=== PATIENT | female | born 1965 | race Caucasian/White ===

== ENCOUNTER 2017-05-22 00:35 | Emergency (ER) | payer SELFPAY ==
[~2017-05-22] VITALS: Ht 167.6 cm; Wt 71.2 kg
[2017-05-22 00:41] VITALS: TEMP 36.6; Ht 167.6 cm; Wt 71.2 kg
--- NOTE | 2017-05-22 00:53 | EMERGENCY ROOM VISIT NOTE ---
History Report prepared by Scribe: Vic Joseph Under the Supervision of: Dr. Deborah Londono D.O. First contact with patient: 00:38 Chief Complaint: NASAL PAIN/INJURY Stated Complaint: ALCOHOL OVERDOSE/FALL History of Present Illness The patient is a 51 year old female who presents to the Emergency Room with complaints of a nasal injury that happened recently after falling in a bathtub in a hotel room. The patient was at a [employer] and her designated milk tanker driver drove her back to her hotel where she ended up falling in the bathtub. She states that she hit her face on the side of the bathtub and cut her nose. She admits to drinking alcohol tonight. Per patient, patient denies any pain in neck , back, chest, or any body aches. Patient describes the scene as "blood everywhere, like someone was murdered". Individuals that were present advised her to go to the ER. Patient admits to "drinking more than she should have". Patient adds that her last tetanus shot was around 20 years ago. Source of History: patient Onset: Prior to arrival Position: nose Timing: other (episode) Associated Symptoms: No neck pain, No chest pain, No back pain Review of Systems See HPI for pertinent positives & negatives. A total of 10 systems reviewed and were otherwise negative. Past Medical & Surgical Medical Problems: (1) No Known Active Medical Problems Family History No pertinent family history stated. Social History Smoking Status: Current Every Day Smoker Occupation Status: employed Current/Historical Medications No Active Prescriptions or Reported Meds Allergies Coded Allergies: No Known Allergies (Unverified , 05/22/17) Physical Exam Vital Signs Date Time Temp Pulse Resp B/P (MAP) Pulse Ox O2 Delivery O2 Flow Rate FiO2 05/22/17 02:51 83 18 131/82 98 05/22/17 00:41 36.6 89 18 127/83 95 Room Air Physical Exam GENERAL: smells of EtOH, alert, well appearing, well nourished, no distress, non -toxic HEAD: NC/AT EYE EXAM: normal conjunctiva, PERRL and EOM's grossly intact OROPHARYNX: no exudate, no erythema, lips, buccal mucosa, and tongue normal and mucous membranes are moist, poor dentition, no acute trauma NOSE: swelling at nasal bridge, small superficial laceration, dry blood bilateral nares, no active epistaxis, no septal hematoma NECK: supple, no nuchal rigidity, no adenopathy, non-tender, no step off LUNGS: Clear to auscultation. Normal chest wall mechanics, no w/r/r HEART: no murmurs, S1 normal and S2 normal ABDOMEN: abdomen soft, non-tender, normo-active bowel sounds, no masses, no rebound or guarding. Pelvis stable. BACK: Back is symmetrical on inspection and there is no deformity, no midline tenderness, no CVA tenderness. SKIN: no rashes and no bruising UPPER EXTREMITIES: upper extremities are grossly normal. FROM, nml pulses, no deformity or trauma. LOWER EXTREMITIES: No pitting edema. FROM, nml pulses. No deformity or trauma. NEURO EXAM: Normal sensorium, cranial nerves II-XII grossly intact, normal speech, no gross weakness of arms, no gross weakness of legs. Medical Decision & Procedures ER Provider Diagnostic Interpretation: Radiology results have been interpreted by the radiologist and reviewed by me. CT HEAD: No acute intracranial abnormality. No acute calvarial abnormality. CT FACIAL: Age indeterminate fracture of the medial wall of the left orbit. No evidence of entrapment. Globes are unremarkable. Multiple periapical lucencies suggesting periodontal disease. CT C SPINE: Degenerative changes without evidence of acute fracture or traumatic malalignment. Centrilobular emphysema. Biapical pleural-parenchymal scarring. Radiologist: Timothy Spann MD Laboratory Results Test 05/22/17 00:49 Ethyl Alcohol mg/dL 303.0 mg/dl (0-3) Laboratory results per my review. Medications Administered Medications (Trade) Dose Ordered Sig/Shad Route Start Time Stop Time Status Last Admin Dose Admin Diphtheria/ Pertussis/Tetanus Vacc (Adacel Inj) 0.5 ml ONCE ONCE IM. 05/22/17 02:45 05/22/17 02:46 DC 05/22/17 02:42 0.5 ML ED Course 0044: The patient was evaluated in room B9. A complete history and physical exam was performed. 0235: Upon reevaluation, the patient is feeling better. I discussed the findings and the treatment plan with the patient. She verbalizes agreement and understanding. She was discharged home. Daughter at bedside to drive her. 0245: Ordered Adacel Inj 0.5 mL IM. Medical Decision Differential diagnosis: Etiologies such as fracture, dislocation, intra-abdominal, pneumothorax, intrathoracic , intracranial, neurologic, as well as other traumatic pathologies were entertained. I have a low suspicion for any additional traumatic injury. Pt well appearing here. Laceration to nasal bridge superficial and does not require repair. Pt ambulated with steady gait, no vomiting, no other complaints on repeat exam. Discussed with pt follow-up, concussion precautions, sx to watch/return for, she verbalized understanding and was agreeable with plan. Medication Reconcilliation Current Medication List: was personally reviewed by me Blood Pressure Screening Patient's blood pressure: Normal blood pressure Blood pressure disposition: Did not require urgent referral Impression Primary Impression: Alcohol intoxication Additional Impressions: CHI (closed head injury) Facial laceration Facial contusion Fall Scribe Attestation The scribe's documentation has been prepared under my direction and personally reviewed by me in its entirety. I confirm that the note above accurately reflects all work, treatment, procedures, and medical decision making performed by me. Departure Information Dispostion Home / Self-Care Prescriptions No Active Prescriptions or Reported Meds Referrals No Doctor, Assigned (PCP) Forms HOME CARE DOCUMENTATION FORM, IMPORTANT VISIT INFORMATION, WORK / SCHOOL INSTRUCTIONS Patient Instructions Alcohol Intoxication - [facility], ED Contusion Nasal, ED Head Injury Closed, My [facility] Additional Instructions Please drink plenty of water to stay well-hydrated. Please drink responsibly safe location. Do not drink and drive. If you develop persistent or worsening headaches, vision changes, dizziness, nausea or vomiting, and this or tingling, neck or back pain, are unable to walk, develop chest pain or trouble breathing, you have any other new or concerning symptoms, please return the emergency room. Problem Qualifiers Primary Impression: Alcohol intoxication Complication of substance-induced condition: uncomplicated Qualified Codes: F10.920 - Alcohol use, unspecified with intoxication, uncomplicated Additional Impressions: CHI (closed head injury) Encounter type: initial encounter Qualified Codes: S09.90XA - Unspecified injury of head, initial encounter Facial laceration Encounter type: initial encounter Qualified Codes: S01.81XA - Laceration without foreign body of other part of head, initial encounter Facial contusion Encounter type: initial encounter Qualified Codes: S00.83XA - Contusion of other part of head, initial encounter Fall Encounter type: initial encounter Qualified Codes: W19.XXXA - Unspecified fall, initial encounter
[2017-05-22] MEDS ORDERED: DIPHTHERIA/TETANUS/PERTUSSIS 0.5 ML SYR/VIAL IM. ONE (02:45)
[2017-05-22 02:51] VITALS: BP 131/82; PULSE 83; O2SAT 98
--- NOTE | 2017-05-22 06:42 | DIAGNOSTIC IMAGING REPORT ---
HEAD CT NONCONTRAST CT DOSE: HISTORY: trauma, etoh TECHNIQUE: Multiaxial CT images of the head were performed without the use of intravenous contrast. Automated exposure control was utilized for this study. A dose lowering technique was utilized adhering to the principles of ALARA. Comparison: None. Findings: The paranasal sinuses and mastoid air cells are clear. The calvarium and skull base are intact. The ventricles and sulci are within normal limits. There is no mass, hematoma, midline shift, or acute infarct. Impression: No acute intracranial abnormality. Electronically signed by: Amadeo Mccullough M.D. 05/22/2017 6:41 AM Dictated Date/Time: 05/22/2017 6:39 AM
--- NOTE | 2017-05-22 06:45 | DIAGNOSTIC IMAGING REPORT ---
CERVICAL SPINE CT CT DOSE: 1486.94 mGy.cm HISTORY: trauma, etoh TECHNIQUE: Multiaxial CT images of the cervical spine were performed and reformatted in the sagittal and coronal plane without the use of contrast. A dose lowering technique was utilized adhering to the principles of ALARA. COMPARISON: None. FINDINGS: No fractures. No subluxation. Prevertebral soft tissues and the C1-C2 interval are intact. No pneumothorax. Moderate to space narrowing and endplate osteophytes C6-C7 and mild disc space narrowing at C5-C6. Emphysema. IMPRESSION: No fractures within the cervical spine. Electronically signed by: Amadeo Mccullough M.D. 05/22/2017 6:44 AM Dictated Date/Time: 05/22/2017 6:41 AM
--- NOTE | 2017-05-22 07:09 | DIAGNOSTIC IMAGING REPORT ---
MAXILLOFACIAL CT CT DOSE: HISTORY: Facial injury. trauma, etoh TECHNIQUE: Multiaxial CT images of the maxillofacial region were performed and reformatted in the coronal plane without the use of contrast. A dose lowering technique was utilized adhering to the principles of ALARA. COMPARISON: None. FINDINGS: Nondisplaced nasal bone fractures. Nasal soft tissue swelling. Medial depression of the medial wall the left orbit. This likely represents an old fracture. There is no adjacent soft tissue swelling to suggest an acute injury. The globes and retrobulbar fat are intact. The mandible, pterygoid plates, skull base, zygomatic arches, and orbital floors are intact. Periapical lucencies consistent with periodontal disease. Retention cyst within the left maxillary sinus. IMPRESSION: Nasal soft tissue swelling with acute nondisplaced nasal bone fractures. Electronically signed by: Amadeo Mccullough M.D. 05/22/2017 7:08 AM Dictated Date/Time: 05/22/2017 7:02 AM
--- NOTE | 2017-05-22 07:26 | EMERGENCY ROOM VISIT NOTE ---
ED Visit Note First contact with patient: 00:[address] read: acute nondisplaced nasal bone fractures on CT face. Charge nurse to call and update patient. Advise no nose blowing and follow-up with ENT.
== END 2017-05-22 02:52 | disposition home or self-care (01) ==
LOC: C.EDB 00:37
DX: F10.920 Alcohol use, unspecified with intoxication, uncomplicated (principal); S09.90XA Unspecified injury of head, initial encounter; S01.81XA Laceration without foreign body of other part of head, initial encounter; W18.2XXA Fall in (into) shower or empty bathtub, initial encounter; W22.8XXA Striking against or struck by other objects, initial encounter; F17.200 Nicotine dependence, unspecified, uncomplicated; Z23 Encounter for immunization

== ENCOUNTER 2025-04-19 14:21 | Inpatient (IN) ==
--- NOTE | 2025-04-19 14:37 | ED Triage Note ---
Date of Service April 19, 2025 Provider in Triage Author: Preston Arellano History of Present Illness This patient was briefly evaluated while in triage. An abbreviated physical exam was performed. This patient is a 59-year-old Female who presents to the ED for evaluation of sharp pain in the "stomach up into my chest and down into my arms and my shoulder blades." Pt. states symptoms started Wednesday. Pain all over in the chest, mainly down into the right arm. Pt. concerned she is having a heart attack. Symptoms improved at this time. Physical Exam VITALS: Vitals are noted on the nurse's note and reviewed by myself. GENERAL: This is a 59 year old female, in no acute distress, nondiaphoretic, well-developed well-nourished. SKIN: No obvious rashes, edema, erythema HEAD: Normocephalic atraumatic. EYES: Conjunctivae without injection, sclerae without icterus. NECK: No JVD. LUNGS: No retractions or accessory muscle use. MUSCULOSKELETAL: Normal gait. NEURO: Patient was alert and oriented to person place and time. No focal neurological deficits. Initial orders for labs and / or imaging were placed and patient was placed in the waiting area until a bed is available. Please see further documentation for the full ED course.
[2025-04-19 15:58] LABS: Hematocrit (blood only) 43.1 % (37.0-47.0); Hemoglobin 14.6 g/dL (12.0-16.0); Immature Granulocytes # (auto) 0.02 K/uL (0.01-0.20); Immature Granulocytes % (auto) 0.3 %; Mean Corpuscular Hemoglobin 32.5 pg (25.0-34.0); Mean Corpuscular Volume 96.0 fL (80.0-100.0); Platelet Count 191 K/uL (130-400); RDW Standard Deviation 45.6 fL (36.4-46.3); Red Blood Count 4.49 M/uL (4.20-5.40); White Blood Count 7.89 K/ul (4.8-10.8)
[2025-04-19] MEDS: SODIUM CHLORIDE 0.9% 1,000 ML IV STA (16:12)
[2025-04-19 16:15] LABS: Alanine Aminotransferase 18.0 U/L (7-52); Albumin Globulin Ratio 1.1 (0.9-2); Albumin Level 4.2 gm/dl (3.4-5.0); Alkaline Phosphatase 107.0 U/L (34-104); Anion Gap 8.0 (3-11); Bilirubin,Total 0.5 mg/dl (0.2-1.0); Blood Urea Nitrogen 7.0 mg/dl (6-23); Calcium 9.9 mg/dl (8.6-10.3); Carbon Dioxide 26.0 mmol/L (21-32); Chloride 104.0 mmol/L (98-107); Creatinine Clr Calc Pharmacy 88.9 ml/min; Globulin 3.9 gm/dl (2.5-4.0); Glucose 101.0 mg/dl (70-99(Fasting)); Lipase 15.0 U/L (11-82); Potassium 3.9 mmol/L (3.5-5.1); Sodium 138.0 mmol/L (136-145); Total Protein 8.1 gm/dl (6.0-8.3)
[2025-04-19 16:26] LABS: INR 1.0 (0.9-1.1); Partial Thromboplastin Time 31 Seconds (21-31); Prothrombin Time 10.6 Seconds (9.0-12.0)
[2025-04-19] MEDS: ASPIRIN 81 MG CHEW PO STA (16:37)
[2025-04-19] MEDS: NITROGLYCERIN SL 0.4 MG/TAB TAB SL PRN (16:38)
[2025-04-19] MEDS: OPTIRAY 320 125ml IV ONE (16:49)
--- NOTE | 2025-04-19 17:52 | CT Scan Report ---
INDICATION: Chest pain COMPARISON: None TECHNIQUE: Images obtained with and without IV contrast CT images of the chest were obtained. 3D CT angiogram was generated from the axial data set. Dose reduction according to patient size and/or automated exposure control techniques have been utilized for this exam. MIP (Maximum Intensity Pixel) images were utilized. FINDINGS: LUNGS: No focal consolidations. No worrisome pulmonary nodules. Emphysematous type changes with numerous bulla predominantly at the lung apices. PLEURA: There is no pleural effusion. MEDIASTINUM/ALAN: No significant lymphadenopathy. CARDIAC: The heart is normal in size. Moderate coronary artery calcifications. AORTA: No evidence of aortic aneurysm or dissection.Mild atherosclerotic changes LIMITED ABDOMEN: Normal size adrenal glands. Upper pole left renal cyst. BONES: Bony thorax is intact. Degenerative changes of the thoracic spine. OTHER: No evidence of pulmonary embolism. Heterogeneous thyroid gland with small nodule formation. IMPRESSION: No evidence of aortic aneurysm or dissection. No evidence of pulmonary embolism. Electronically signed by Shnanon Negron 04-19-2025 5:51 PM
--- NOTE | 2025-04-19 17:52 | XRay Report ---
COMPARISON: None FINDINGS: HEART: Normal in size. LUNGS: No focal consolidation, pleural effusion, or vascular congestion. MEEDIASTINUM: Unremarkable. BONES: Intact. OTHER: Unremarkable. IMPRESSION: No acute disease. Electronically signed by Shannon Negron 04-19-2025 5:51 PM
--- NOTE | 2025-04-19 18:20 | CT Scan Report ---
Clinical history: Evaluate for dissection Technique: Axial computed tomography images were obtained of the abdomen and pelvis after the administration of intravenous contrast according to the CT angiogram protocol Findings: The abdominal aorta appears unremarkable with no sign of aneurysm or dissection. No stenosis is seen involving it. The celiac axis and superior mesenteric artery are patent with no stenosis identified. The inferior mesenteric artery is patent as well. There are 2 right renal arteries. Both demonstrate moderate severity stenoses in their proximal aspects. There are 2 left renal arteries. There is a mild stenosis in the proximal aspect of the main left renal artery. There is mild plaque in the common iliac arteries bilaterally, without stenosis. There are mild stenoses of the proximal internal iliac arteries bilaterally. No stenosis is seen of the external iliac arteries. There are mild stenoses of the right common femoral artery in the proximal right superficial femoral artery. The liver is overall of normal size, attenuation, and contour with no sign of cirrhosis or significant fatty infiltration. There is an apparent 8 mm enhancing lesion in the posterior septum of the right hepatic lobe. The portal vein is patent. The gallbladder appears unremarkable. No bile duct dilatation is noted. The spleen is of normal size. No focal splenic lesion is evident. The pancreas appears normal with no sign of acute or chronic pancreatitis and no mass lesion noted. The pancreatic duct is of normal caliber. . There is a 1.7 cm left adrenal nodule, indeterminate in nature. The right adrenal gland appears normal No definite renal or proximal ureteral calculi are seen on this contrast-enhanced study. There is no hydronephrosis or perinephric stranding. No renal mass lesion is identified. There are several left renal cysts, measuring up to 2 cm No adenopathy is seen. The stomach appears normal. There is no sign of small bowel obstruction. The colon appears unremarkable. There is no sign of appendicitis. No free intraperitoneal fluid or air is identified. No distal ureteral or bladder calculi are seen. No bladder mass lesion is evident. The lungs bases appear clear. No fracture is identified. No focal osseous lesion is seen Impression: 1. No sign of abdominal aortic aneurysm or dissection 2. Bilateral renal artery stenosis 3. No sign of mesenteric artery stenosis 4. Mild stenoses of the right [employer], proximal right SFA, and bilateral internal iliac arteries 5. Indeterminate left adrenal enlargement. A follow-up dedicated adrenal protocol CT or MRI could be obtained 6. Left renal cysts 7. Apparent small mass in the right hepatic lobe. This could represent a benign hemangioma but is indeterminate in nature. This could also be further evaluated by the above recommended follow-up CT or MRI ACT 112: Positive. There are findings on this exam that require communication between the performing entity and the patient following Patient Test Result Information Act ([place] ACT 112) guidelines. Electronically signed by Oseas Sanchez 04-19-2025 6:19 PM
[2025-04-19] MEDS: HEPARIN SOD (PORCINE) 1000 UNIT/ML IV ONE (19:06)
[2025-04-19] MEDS: HEPARIN 25000 UNIT/500 ML D5W 25,000 UNITS/500 ML BAG IV SCH (19:06)
[2025-04-19] MEDS: Heparin IV Adult Wt-Based Low-Dose w/ INITIAL Bolus Protocol IV STA (19:07)
--- NOTE | 2025-04-19 19:21 | History & Physical Report ---
Date of Service April 19, 2025 Assessment & Plan (1) NSTEMI (non-ST elevated myocardial infarction): (2) Elevated LFTs: Plan 59-year-old female no significant PMHx presenting for right-sided chest pain starting 5 to 6 days [employer], worsening day of arrival. Evaluation is nonsignifica nt for clear infection or gross electrolyte abnormalities. Liver enzymes slightly elevated AST 47 alkaline phosphatase 107. Troponin elevated 2195.7 then on repeat 2605.5 with EKG changes. Imaging without acute findings, but CTA of abdomen and pelvis does reveal bilateral renal artery stenosis as well as L adrenal enlargement, L renal cyst, and R hepatic lobe mass. Admission for NSTEMI. #NSTEMI Chest pain started approximately 6 days [employer], worsening day of arrival with radiation into shoulders and arms. No prior history of cardiac conditions, does have long history of cigarette use, ~ 45 years at ~ 1ppd but trying to decrease. No home medications. Pt without anginal symptoms at baseline. Initially difficult to obtain pain control despite IV beta blockers, oral beta blockers, NTG, topical NTG, and morphine IV. Finally with improvement, so pt to continue to PCU. Critical care time includes 42 minutes duration. Admission for NSTEMI. 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 No prior history liver disease. Does drink alcohol occasionally throughout the week. - AST 47, ALT 18, alk phos 107 - trend LFTs - CTA A/P small mass R hepatic lobe - ? benign hemangioma - Recommended follow up CT or MRI -- not ordered at time of admission Dispo: Admit, PCU VTE Prophylaxis: Heparin - treatment dose This document was dictated utilizing [employer]. Please excuse any grammatical errors that may be secondary to use of this software. Admission and Anticipated Discharge Date Admission Date: 04/19/2025 History of Present Illness Chief Complaint: Abdominal/chest pain Primary Care Provider: Cesar Araiza PA-C 59-year-old female no significant PMHx presenting for right-sided chest pain starting 6 days [employer], worsening day of arrival. Pt states 6 days [employer] she developed a "weird pain" in her central chest, describing it as a "crooked burp- like a burp that gets stuck in your chest." Reports that she was at rest when this started. The pain lasted for ~ 30 minutes, then resolved without intervention. Later that same day, she went to bed and noticed that the pain started once more in the same nature, this time with radiation to her shoulder blades and with tingling in her bilateral arms. She took Mylanta at that time and felt that this resolved her pain, so she was able to sleep. Did not have additional symptoms at that time. 2 days [employer] she had another episode of the same pain that lasted ~ 2 hours and was associated with nausea, no vomiting. It again resolved on its own. Pt then had onset of R sided chest discomfort the morning of arrival, at 0130, lasting until ~ 0330. Notes that it was a dull pain that, at its worst, was "close to a 10/10" on the pain scale, and associated with lightheadedness when she was walking or moving around. It was in the same distribution as previously described. She has been more aware of her heartbeat, but no palpitations or SOB. She does have a chronic cough as she has smoked cigarettes for ~ 45 years, 1ppd, but currently trying to quit. At present, she feels that she still has some discomfort in her chest, rating it a 5/10 on the main scale and localized under her R breast. No abdominal pain, N/V/D/C. She has no prior history of gallbladder issues. No prior PMHx aside from seasonal allergies, does not take medications daily. Never had this happen before. No syncope or falls. ED evaluation with CBC without leukocytosis or leukopenia, H&H stable; PT/INR WNL; CMP glucose 101, AST 47, alkaline phosphatase 107; troponin 2195.7, 2605.5 on repeat; lipase 15; CXR no acute disease; CTA A/P no abdominal aortic aneurysm or dissection, bilateral renal artery stenosis, no sign of mesenteric artery stenosis, mild stenosis of R RAIL [employer] PAINTER/SANDBLASTER/proximal R SFA/bilateral internal iliac arteries, left adrenal enlargement determinate, L renal cyst, small mass R hepatic lobe (indeterminate); chest CTA no aneurysm or dissection, no PE; EKG NSR, possible LAE at 94 bpm.; Provided with 1L NSS, nitr oglycerin 0.4 mg sublingually, heparin drip initiated, and aspirin 324 mg p.o. in ED. Please see Dr. Omalley's attestation for adjustments/additions to treatment plan. Allergies Allergy/AdvReac Type Severity Reaction Status Date / Time No Known Allergies Allergy Unverified 04/19/25 17:07 Home Medications Medication Instructions Recorded Confirmed Type No Known Home Medications 04/19/25 04/19/25 History aspirin 81 mg tablet,delayed 81 mg PO QAM #30 tabs 04/21/25 Rx release atorvastatin 40 mg tablet 40 mg PO QPM #30 tabs 04/21/25 Rx metoprolol tartrate 25 mg tablet 25 mg PO BID #60 tabs 04/21/25 Rx ticagrelor 90 mg tablet (Brilinta) 90 mg PO BID #60 tabs 04/21/25 Rx Past Med/Surg History Problem List (Updated 04/21/25 @ 09:25 by Medhat Heath MD, PhD) Atherogenic dyslipidemia Coronary artery disease Elevated LFTs NSTEMI (non-ST elevated myocardial infarction) (Acute) No known health problems Social History Smoking Status: Current every day smoker Tobacco Type: Cigarettes Cigarettes Per Day: 1 pk; Second Hand Exposure: Yes; Do You Dip or Chew Tobacco: No; Hx Alcohol Use: No Hx Substance Use: No Preferred Language: Argentine Communication Ability: Effective 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 Beliefs That Will Affect Care: None Current Living Situation: Significant Other Feels Safe at Home: Yes Assistive Devices: None Review of Systems Review of Systems: All systems reviewed & are unremarkable except as noted in Subjective Physical Exam Physical Exam: General: No acute distress Skin: Warm and dry Head: Normocephalic, atraumatic Eyes: PERRL, conjunctivae clear, sclera non-icteric ENT: External ear and ear canal without swelling; nose atraumatic; fair dentition, tongue normal appearance, pharynx normal Neck: Supple, no LAD Cardio: slightly tachycardic, regular rhythm, no M/G/R, S1 and S2 normal Resp: No respiratory distress, Lungs CTA in all lobes bilaterally, no wheezes, rales, or rhonchi Abdomen: Soft, symmetric, nontender; No masses or hepatosplenomegaly; Bowel sounds normoactive MSK: No deformities; pulses palpable and equal; trace pitting edema BLE to mid- calf. Neuro: Awake, alert; Sensation intact bilaterally; CN grossly intact Psych: Appropriate mood and affect; good judgement and insight. Results & Data Results & Data Vital Signs (Past 12 Hours) Vital Signs Temp Pulse Pulse Resp BP BP Pulse Ox 04/19/25 18:00 85 19 156/91 H 97 04/19/25 17:00 91 H 21 146/84 H 95 04/19/25 16:43 91 H 16 100 04/19/25 16:30 92 H 22 04/19/25 16:23 91 H 04/19/25 16:18 93 H 16 146/91 H 100 04/19/25 14:35 37.0 C 101 H 17 140/80 98 O2 Del Method 04/19/25 18:00 04/19/25 17:00 04/19/25 16:43 Room Air 04/19/25 16:30 04/19/25 16:23 04/19/25 16:18 Room Air 04/19/25 14:35 Room Air Laboratory Results 04/19/25 04/19/25 Unknown 17:28 WBC 7.89 RBC 4.49 Hgb 14.6 Hct 43.1 MCV 96.0 MCH 32.5 MCHC 33.9 RDW Std Deviation 45.6 RDW Coeff of Jose Eduardo 12.9 Plt Count 191 MPV 11.0 Immature Gran % (Auto) 0.3 Neut % (Auto) 63.5 Lymph % (Auto) 27.2 Ceiba % (Auto) 7.2 Eos % (Auto) 1.0 Baso % (Auto) 0.8 Neut # (Auto) 5.01 Lymph # (Auto) 2.15 Ceiba # (Auto) 0.57 Eos # (Auto) 0.08 Baso # (Auto) 0.06 Immature Gran # (Auto) 0.02 PT 10.6 INR 1.0 APTT 31 PTT Ratio 1.1 Sodium 138 Potassium 3.9 Chloride 104 Carbon Dioxide 26 Anion Gap 8 BUN 7 Creatinine 0.63 Est Cr Clr Drug Dosing 88.9 eGFR 101.49 BUN/Creatinine Ratio 11.1 Glucose 101 H Calcium 9.9 Total Bilirubin 0.5 AST 47 H ALT 18 Alkaline Phosphatase 107 H Troponin I High Sens 2605.5 H* 2195.7 H* Total Protein 8.1 Albumin 4.2 Globulin 3.9 Albumin/Globulin Ratio 1.1 Lipase 15 Diagnostic Findings Chest X-Ray 04/19/25 14:38 COMPARISON: None FINDINGS: HEART: Normal in size. LUNGS: No focal consolidation, pleural effusion, or vascular congestion. MEEDIASTINUM: Unremarkable. BONES: Intact. OTHER: Unremarkable. IMPRESSION: No acute disease. Electronically signed by Shannon Negron 04-19-2025 5:51 PM Abdomen/Pelvis CTA 04/19/25 16:35 Clinical history: Evaluate for dissection Technique: Axial computed tomography images were obtained of the abdomen and pelvis after the administration of intravenous contrast according to the CT angiogram protocol Findings: The abdominal aorta appears unremarkable with no sign of aneurysm or dissection. No stenosis is seen involving it. The celiac axis and superior mesenteric artery are patent with no stenosis identified. The inferior mesenteric artery is patent as well. There are 2 right renal arteries. Both demonstrate moderate severity stenoses in their proximal aspects. There are 2 left renal arteries. There is a mild stenosis in the proximal aspect of the main left renal artery. There is mild plaque in the common iliac arteries bilaterally, without stenosis. There are mild stenoses of the proximal internal iliac arteries bilaterally. No stenosis is seen of the external iliac arteries. There are mild stenoses of the right common femoral artery in the proximal right superficial femoral artery. The liver is overall of normal size, attenuation, and contour with no sign of cirrhosis or significant fatty infiltration. There is an apparent 8 mm enhancing lesion in the posterior septum of the right hepatic lobe. The portal vein is patent. The gallbladder appears unremarkable. No bile duct dilatation is noted. The spleen is of normal size. No focal splenic lesion is evident. The pancreas appears normal with no sign of acute or chronic pancreatitis and no mass lesion noted. The pancreatic duct is of normal caliber. . There is a 1.7 cm left adrenal nodule, indeterminate in nature. The right adrenal gland appears normal No definite renal or proximal ureteral calculi are seen on this contrast-enhanced study. There is no hydronephrosis or perinephric stranding. No renal mass lesion is identified. There are several left renal cysts, measuring up to 2 cm No adenopathy is seen. The stomach appears normal. There is no sign of small bowel obstruction. The colon appears unremarkable. There is no sign of appendicitis. No free intraperitoneal fluid or air is identified. No distal ureteral or bladder calculi are seen. No bladder mass lesion is evident. The lungs bases appear clear. No fracture is identified. No focal osseous lesion is seen Impression: 1. No sign of abdominal aortic aneurysm or dissection 2. Bilateral renal artery stenosis 3. No sign of mesenteric artery stenosis 4. Mild stenoses of the right RAIL CAR PAINTER/SANDBLASTER, proximal right SFA, and bilateral internal iliac arteries 5. Indeterminate left adrenal enlargement. A follow-up dedicated adrenal protocol CT or MRI could be obtained 6. Left renal cysts 7. Apparent small mass in the right hepatic lobe. This could represent a benign hemangioma but is indeterminate in nature. This could also be further evaluated by the above recommended follow-up CT or MRI ACT 112: Positive. There are findings on this exam that require communication between the performing entity and the patient following Patient Test Result Information Act ([place] ACT 112) guidelines. Electronically signed by Oseas Sanchez 04-19-2025 6:19 PM Chest CTA 04/19/25 16:35 INDICATION: Chest pain COMPARISON: None TECHNIQUE: Images obtained with and without IV contrast CT images of the chest were obtained. 3D CT angiogram was generated from the axial data set. Dose reduction according to patient size and/or automated exposure control techniques have been utilized for this exam. MIP (Maximum Intensity Pixel) images were utilized. FINDINGS: LUNGS: No focal consolidations. No worrisome pulmonary nodules. Emphysematous type changes with numerous bulla predominantly at the lung apices. PLEURA: There is no pleural effusion. MEDIASTINUM/ALAN: No significant lymphadenopathy. CARDIAC: The heart is normal in size. Moderate coronary artery calcifications. AORTA: No evidence of aortic aneurysm or dissection.Mild atherosclerotic changes LIMITED ABDOMEN: Normal size adrenal glands. Upper pole left renal cyst. BONES: Bony thorax is intact. Degenerative changes of the thoracic spine. OTHER: No evidence of pulmonary embolism. Heterogeneous thyroid gland with small nodule formation. IMPRESSION: No evidence of aortic aneurysm or dissection. No evidence of pulmonary embolism. Electronically signed by Shannon Negron 04-19-2025 5:51 PM Medications Administered 1L NSS Nitroglycerin 0.4 mg sublingually Heparin drip Aspirin 324 mg p.o. ECG Additional Comments: NSR, possible LAE, nonspecific ST abnormality (V3, V4) 94 bpm, MN 136, QRS 84, QT/QTc 354/442, PRT 35/62/51 Code Status & VTE Plan Code Status Full Critical Care Time Critical Care Time: Yes Total Critical Care Time: 42 Supervising Physician Co-Signing Physician Notes Attending addendum: I have physically seen this patient, have supervised the DAVID's activities, and agree with the H&P unless as otherwise noted. Assessment and Plan: The patient is a 59-year-old female with no significant past medical history who presents to the emergency department with right-sided chest pain that began about 5 to 6 days prior to arrival, worsening on day of arrival. Initial troponin in the emergency department was 2195.7, with follow-up 2605.[address] angiography of abdomen and pelvis showed bilateral renal artery stenosis, left adrenal enlargement, left renal cyst, and right [place] lobe mass. NSTEMI- Initial troponin 2195.7, with follow-up 2605.5. The patient will be admitted to telemetry for serial cardiac enzymes, serial EKG's, cardiac rhythm monitoring and a 2-D echocardiogram with Dopplers. EKG with normal sinus rhythm and ST changes leads is noted. CT angiography of chest is negative for PE, aneurysm or dissection. CT angiography abdomen and pelvis showed bilateral renal artery stenosis, mild stenosis of the lower RAIL [employer]/SANDB[employer]ER and proximal right SFA Order fasting lipid panel Begin empiric atorvastatin 40 mg daily with first dose now Nitroglycerin sublingual and morphine IV as noted Metoprolol to tartrate 25 mg p.o. twice daily begun in the ED Continue aspirin 81 mg daily Tobacco cessation counseling Heparin drip per protocol Consult cardiology Elevated LFTs/hepatic mass- AST 47, ALT 18, alk phos 107 CT angiography abdomen/pelvis shows a small mass right hepatic lobe question benign hemangioma PG Care Time/CCT Total # of Minutes Spent Total Time Spent with Patient: Total time spent is greater than 50% in coordination of care (as documented) at patient's floor/unit and/or counseling patient: Critical Care Time: Yes Total Critical Care Time: 42 Coding Level of Care Code 53118 INT INP/OBS CARE MIN Diagnoses NSTEMI (non-ST elevated myocardial infarction) I21.4 Elevated LFTs R79.89 Additional Codes Critical Care Time - Critical Care Time: Yes ([id number])
[2025-04-19 19:45] LABS: Magnesium 2.2 mg/dl (1.7-2.4)
[2025-04-19] MEDS: NITROGLYCERIN 2% OINTMENT 30GM TUBE EXT ONE (19:49)
[2025-04-19] MEDS: NITROGLYCERIN 2% OINTMENT 30GM TUBE EXT STA ×2 (19:51→22:51)
[2025-04-19] MEDS: METOPROLOL TARTRATE 1 MG/ML VIAL IV STA ×2 (20:20→22:08)
[2025-04-19] MEDS ORDERED: METOPROLOL TARTRATE 25 MG TAB PO SCH (21:00)
[2025-04-19] MEDS: METOPROLOL TARTRATE 50 MG TAB PO STA (22:37)
--- NOTE | 2025-04-19 22:53 | Emergency Department Note ---
History of Present Illness General Chief Complaint: Abdominal Pain Stated Complaint: ABD PAIN, SHOOTING TO ARMS Time Seen by Provider: 04/19/25 16:14 History of Present Illness Provider Complaint: chest pain Onset (ago): day(s) 5 Duration: intermittent Onset: during rest Pain Location: substernal and epigastric Pain Radiation: back Maximum Pain Intensity: 6 Current Pain Intensity: 6 Quality: + dull Relieved By: + nothing Exacerbated By: + nothing Context: no recent illness, no recent surgery, no recent immobilization, no recent travel, no trauma/injury, no new medications or no history of DVT/PE Associated symptoms: no nausea, no vomiting, no dyspnea, no syncope, no palpitations, no fever or no cough Home Medications Medication Instructions Recorded Confirmed Type No Known Home Medications 04/19/25 04/19/25 History Allergies Allergy/AdvReac Type Severity Reaction Status Date / Time No Known Allergies Allergy Unverified 04/19/25 17:07 Past Med/Surg History Problem List (Updated 04/19/25 @ 22:53 by Edouard Lunsford MD) Elevated LFTs NSTEMI (non-ST elevated myocardial infarction) (Acute) No known health problems Social History Smoking Status: Current every day smoker Tobacco Type: Cigarettes Preferred Language: [place]i Feels Safe at Home: Yes Physical Exam Vital Signs Vital Signs - 24 hr 04/19/25 14:35 04/19/25 16:18 04/19/25 16:23 Temperature 37.0 C Temperature Source Temporal Artery Scan Pulse Rate 101 H 91 H Pulse Rate [Apical] 93 H Pulse Rate from SpO2 Sensor Pulse Rhythm Pulse Rhythm [Apical] Pulse Strength [Apical] Respiratory Rate 17 16 Respiratory Effort / Characteristics Non-Labored Spontaneous Respiratory Depth Normal Respiratory Pattern Blood Pressure 140/80 Blood Pressure [Right Arm] 146/91 H Blood Pressure Mean 100 Blood Pressure Mean [Right Arm] 109 Blood Pressure Position [Right Arm] Pulse Oximetry 98 100 Oxygen Delivery Method Room Air Room Air Sepsis Recent Fever Within 48 Hours No Sepsis New/Unexplained Change in Mental Status N/A Sepsis Action Taken by Nursing No Action Required 04/19/25 16:30 04/19/25 16:43 04/19/25 17:00 Temperature Temperature Source Pulse Rate 92 H 91 H 91 H Pulse Rate [Apical] Pulse Rate from SpO2 Sensor 92 H Pulse Rhythm Regular Pulse Rhythm [Apical] Pulse Strength [Apical] Respiratory Rate 22 16 21 Respiratory Effort / Characteristics Respiratory Depth Respiratory Pattern Blood Pressure 146/84 H Blood Pressure [Right Arm] Blood Pressure Mean 104 Blood Pressure Mean [Right Arm] Blood Pressure Position [Right Arm] Pulse Oximetry 100 95 Oxygen Delivery Method Room Air Sepsis Recent Fever Within 48 Hours Sepsis New/Unexplained Change in Mental Status Sepsis Action Taken by Nursing 04/19/25 18:00 04/19/25 19:00 04/19/25 20:00 Temperature Temperature Source Pulse Rate 85 81 83 Pulse Rate [Apical] Pulse Rate from SpO2 Sensor 85 81 Pulse Rhythm Pulse Rhythm [Apical] Pulse Strength [Apical] Respiratory Rate 19 19 15 Respiratory Effort / Characteristics Respiratory Depth Respiratory Pattern Blood Pressure 156/91 H 156/90 H 151/92 H Blood Pressure [Right Arm] Blood Pressure Mean 112 104 111 Blood Pressure Mean [Right Arm] Blood Pressure Position [Right Arm] Pulse Oximetry 97 98 96 Oxygen Delivery Method Room Air Room Air Sepsis Recent Fever Within 48 Hours Sepsis New/Unexplained Change in Mental Status Sepsis Action Taken by Nursing 04/19/25 20:20 04/19/25 20:36 04/19/25 21:00 Temperature Temperature Source Pulse Rate 97 H 70 Pulse Rate [Apical] 74 Pulse Rate from SpO2 Sensor Pulse Rhythm Pulse Rhythm [Apical] Regular Pulse Strength [Apical] Normal Respiratory Rate 19 Respiratory Effort / Characteristics Non-Labored Respiratory Depth Normal Respiratory Pattern Regular Blood Pressure 151/92 H Blood Pressure [Right Arm] 154/88 H Blood Pressure Mean Blood Pressure Mean [Right Arm] 110 Blood Pressure Position [Right Arm] Sitting Pulse Oximetry Oxygen Delivery Method Room Air Sepsis Recent Fever Within 48 Hours Sepsis New/Unexplained Change in Mental Status Sepsis Action Taken by Nursing 04/19/25 22:08 04/19/25 22:38 Temperature Temperature Source Pulse Rate 79 Pulse Rate [Apical] 83 Pulse Rate from SpO2 Sensor Pulse Rhythm Pulse Rhythm [Apical] Regular Pulse Strength [Apical] Normal Respiratory Rate 19 Respiratory Effort / Characteristics Non-Labored Respiratory Depth Normal Respiratory Pattern Regular Blood Pressure 161/94 H Blood Pressure [Right Arm] 168/103 H Blood Pressure Mean Blood Pressure Mean [Right Arm] 124 Blood Pressure Position [Right Arm] Sitting Pulse Oximetry 95 Oxygen Delivery Method Room Air Sepsis Recent Fever Within 48 Hours Sepsis New/Unexplained Change in Mental Status Sepsis Action Taken by Nursing Physical Exam HENT: Exam performed. -Head: Normocephalic and atraumatic. EYES: Conjunctivae and EOM are normal. Pupils are equal, round, and reactive to light. Right eye exhibits no discharge. Left eye exhibits no discharge. No scleral icterus. NECK: Normal range of motion. Neck supple. No JVD present. CV: Normal rate, regular rhythm, normal heart sounds and intact distal pulses. There is no peripheral edema. Palpable radial pulses bue. PULM/CHEST: Effort normal and breath sounds normal. No respiratory distress. No stridor. She has no wheezes. She has no rales. ABD: The abdomen is soft. There is no tenderness. There is no rebound, no guarding MUSC/SKEL: Normal range of motion. There is no peripheral edema, tenderness or deformity. LYMPH: No cervical adenopathy. NEURO: Motor and sensation grossly intact. Course Course 1614: The patient was evaluated in room C1. A complete history and physical exam was performed Cardiac monitoring: An order was placed for continuous cardiac monitoring. The monitor shows a rate of 90 with sinus rhythm interpreted by me Patient was seen during a time of extreme volume and extreme acuity. Nursing triage protocols were initiated labs and imaging was conducted by protocol in the triage area. Patient's high-sensitivity troponin was elevated. EKG showed some mild ST depression in lead II, III and aVF as well as V3 and V4. Will repeat EKGs and conduct posterior EKG. 1635: Repeat EKGs showed no significant changes. Continued ST depressions in leads II, III, aVF, V3 and V4. Posterior EKG unremarkable. Will obtain CTA chest to rule out dissection. 1840: Vital signs stable. Patient reports that the nitroglycerin sublingually did help her chest pain but it started come back. Patient given additional sublingual nitroglycerin and started on Nitropaste. CTA of the chest abdomen pelvis negative for dissection. Patient alert and oriented x 3 no focal neurologic deficits. Patient be started on heparin bolus and drip and be admitted for NSTEMI. Administered Medications Heparin Sodium/Dextrose (Heparin 87863 Unit/500 Ml D5w) 25,000 units in 500 mls @ 15 mls/hr IV .Q24H [facility]; Protocol Stop: 05/19/25 18:59 Last Admin: 04/19/25 19:06 Dose: 750 units/hr, 15 mls/hr Documented By: JONO Co-signed By: FERNANDO Nitroglycerin (Nitroglycerin Sl 0.4 Mg/Tab Tab) 0.4 mg SL Q5M PRN PRN Reason: Chest Pain Stop: 05/19/25 16:30 Last Admin: 04/19/25 19:22 Dose: 0.4 mg Documented By: Admin: 04/19/25 16:38 Dose: 0.4 mg Documented By: JONO Discontinued Medications Aspirin (Aspirin 81 Mg Chew) 324 mg PO NOW STA Stop: 04/19/25 16:32 Last Admin: 04/19/25 16:37 Dose: 324 mg Documented By: JONO Heparin Sodium (Porcine) (Heparin Sod (Porcine) 1000 Unit/Ml) 1 units IV NOW ONE Stop: 04/19/25 18:55 Last Admin: 04/19/25 19:06 Dose: 4,000 units Documented By: JONO Co-signed By: FERNANDO Heparin Sodium/Dextrose (Heparin Iv Adult Wt-Based Low-Dose W/ Initial Bolus Protocol) 1 each IV NOW STA; Protocol Stop: 04/19/25 18:40 Last Admin: 04/19/25 19:07 Dose: Not Given Documented By: JONO Sodium Chloride (Nss) 1,000 mls @ 999 mls/hr IV .Q1H1M STA Stop: 04/19/25 15:38 Last Infusion: 04/19/25 17:46 Dose: Infused Documented By: Admin: 04/19/25 16:12 Dose: 999 mls/hr Documented By: TIGRE Ioversol (Optiray 320 125ml) 120 ml IV ONCE ONE Stop: 04/19/25 16:50 Last Admin: 04/19/25 16:49 Dose: 120 ml Documented By: CORY Metoprolol Tartrate (Metoprolol Tartrate 1 Mg/Ml Vial) 5 mg IV NOW STA Stop: 04/19/25 20:07 Last Admin: 04/19/25 20:20 Dose: 5 mg Documented By: FERNANDO Metoprolol Tartrate (Metoprolol Tartrate 1 Mg/Ml Vial) 5 mg IV NOW STA Stop: 04/19/25 21:48 Last Admin: 04/19/25 22:08 Dose: 5 mg Documented By: FERNANDO Metoprolol Tartrate (Metoprolol Tartrate 50 Mg Tab) 50 mg PO NOW STA Stop: 04/19/25 21:50 Last Admin: 04/19/25 22:37 Dose: 50 mg Documented By: ARTEM Nitroglycerin (Nitroglycerin 2% Ointment 30gm Tube) Confirm Administered Dose 18 inch EXT .STK-MED ONE Stop: 04/19/25 19:21 Last Admin: 04/19/25 19:49 Dose: Not Given Documented By: FERNANDO Nitroglycerin (Nitroglycerin 2% Ointment 30gm Tube) 0.5 inch EXT NOW STA Stop: 04/19/25 19:48 Last Admin: 04/19/25 19:51 Dose: 0.5 inch Documented By: FERNANDO Medical Decision Making Laboratory Data Attestation: I reviewed the patient's lab results. 04/19/25 Unknown 04/19/25 Unknown Labs: Lab Results 04/19/25 04/19/25 Range/Units 17:28 Unknown WBC 7.89 (4.8-10.8) K/ul RBC 4.49 (4.20-5.40) M/uL Hgb 14.6 (12.0-16.0) g/dL Hct 43.1 (37.0-47.0) % MCV 96.0 (80.0-100.0) fL MCH 32.5 (25.0-34.0) pg MCHC 33.9 (32.0-36.0) g/dL RDW Std Deviation 45.6 (36.4-46.3) fL RDW Coeff of Jose Eduardo 12.9 (11.5-14.5) % Plt Count 191 (130-400) K/uL MPV 11.0 (9.4-12.4) fL Immature Gran % (Auto) 0.3 % Neut % (Auto) 63.5 % Lymph % (Auto) 27.2 % Barren % (Auto) 7.2 % Eos % (Auto) 1.0 % Baso % (Auto) 0.8 % Neut # (Auto) 5.01 (1.40-6.50) K/uL Lymph # (Auto) 2.15 (1.20-3.40) K/uL Barren # (Auto) 0.57 (0.11-0.59) K/uL Eos # (Auto) 0.08 (0.00-0.50) K/uL Baso # (Auto) 0.06 (0.00-0.20) K/uL Immature Gran # (Auto) 0.02 (0.01-0.20) K/uL PT 10.6 (9.0-12.0) Seconds INR 1.0 (0.9-1.1) APTT 31 (21-31) Seconds PTT Ratio 1.1 Sodium 138 (136-145) mmol/L Potassium 3.9 (3.5-5.1) mmol/L Chloride 104 (98-107) mmol/L Carbon Dioxide 26 (21-32) mmol/L Anion Gap 8 (3-11) BUN 7 (6-23) mg/dl Creatinine 0.63 (0.6-1.2) mg/dl Est Cr Clr Drug Dosing 88.9 ml/min eGFR 101.49 BUN/Creatinine Ratio 11.1 (10-20) Glucose 101 H (70-99(Fasting)) mg/dl Calcium 9.9 (8.6-10.3) mg/dl Magnesium 2.2 (1.7-2.4) mg/dl Total Bilirubin 0.5 (0.2-1.0) mg/dl AST 47 H (13-39) U/L ALT 18 (7-52) U/L Alkaline Phosphatase 107 H (34-104) U/L Troponin I High Sens 2195.7 H* 2605.5 H* (0-14) pg/ml Total Protein 8.1 (6.0-8.3) gm/dl Albumin 4.2 (3.4-5.0) gm/dl Globulin 3.9 (2.5-4.0) gm/dl Albumin/Globulin Ratio 1.1 (0.9-2) Lipase 15 (11-82) U/L Imaging Data Chest x-ray: Attestation: I personally reviewed and interpreted this imaging study as follows: My impression: Chest x-ray negative. Airway clear. No pneumothorax. No consolidation. No cardiomegaly or cephalization.. No free air under the diaphragm. No fractures of the skeletal structures. Radiologist's impression: COMPARISON: None FINDINGS: HEART: Normal in size. LUNGS: No focal consolidation, pleural effusion, or vascular congestion. MEEDIASTINUM: Unremarkable. BONES: Intact. OTHER: Unremarkable. IMPRESSION: No acute disease. Electronically signed by Shnanon Negron 04-19-2025 5:51 PM Dictated: 04/19/25 1559 Transcribed: CT scan - chest: Radiologist's impression: INDICATION: Chest pain COMPARISON: None TECHNIQUE: Images obtained with and without IV contrast CT images of the chest were obtained. 3D CT angiogram was generated from the axial data set. Dose reduction according to patient size and/or automated exposure control techniques have been utilized for this exam. MIP (Maximum Intensity Pixel) images were utilized. FINDINGS: LUNGS: No focal consolidations. No worrisome pulmonary nodules. Emphysematous type changes with numerous bulla predominantly at the lung apices. PLEURA: There is no pleural effusion. MEDIASTINUM/ALAN: No significant lymphadenopathy. CARDIAC: The heart is normal in size. Moderate coronary artery calcifications. AORTA: No evidence of aortic aneurysm or dissection.Mild atherosclerotic changes LIMITED ABDOMEN: Normal size adrenal glands. Upper pole left renal cyst. BONES: Bony thorax is intact. Degenerative changes of the thoracic spine. OTHER: No evidence of pulmonary embolism. Heterogeneous thyroid gland with small nodule formation. IMPRESSION: No evidence of aortic aneurysm or dissection. No evidence of pulmonary embolism. Electronically signed by Shannon Negron 04-19-2025 5:51 PM Dictated: 04/19/25 1644 Transcribed: CT scan - abdomen: Radiologist's impression: Clinical history: Evaluate for dissection Technique: Axial computed tomography images were obtained of the abdomen and pelvis after the administration of intravenous contrast according to the CT angiogram protocol Findings: The abdominal aorta appears unremarkable with no sign of aneurysm or dissection. No stenosis is seen involving it. The celiac axis and superior mesenteric artery are patent with no stenosis identified. The inferior mesenteric artery is patent as well. There are 2 right renal arteries. Both demonstrate moderate severity stenoses in their proximal aspects. There are 2 left renal arteries. There is a mild stenosis in the proximal aspect of the main left renal artery. There is mild plaque in the common iliac arteries bilaterally, without stenosis. There are mild stenoses of the proximal internal iliac arteries bilaterally. No stenosis is seen of the external iliac arteries. There are mild stenoses of the right common femoral artery in the proximal right superficial femoral artery. The liver is overall of normal size, attenuation, and contour with no sign of cirrhosis or significant fatty infiltration. There is an apparent 8 mm enhancing lesion in the posterior septum of the right hepatic lobe. The portal vein is patent. The gallbladder appears unremarkable. No bile duct dilatation is noted. The spleen is of normal size. No focal splenic lesion is evident. The pancreas appears normal with no sign of acute or chronic pancreatitis and no mass lesion noted. The pancreatic duct is of normal caliber. . There is a 1.7 cm left adrenal nodule, indeterminate in nature. The right adrenal gland appears normal No definite renal or proximal ureteral calculi are seen on this contrast-enhanced study. There is no hydronephrosis or perinephric stranding. No renal mass lesion is identified. There are several left renal cysts, measuring up to 2 cm No adenopathy is seen. The stomach appears normal. There is no sign of small bowel obstruction. The colon appears unremarkable. There is no sign of appendicitis. No free intraperitoneal fluid or air is identified. No distal ureteral or bladder calculi are seen. No bladder mass lesion is evident. The lungs bases appear clear. No fracture is identified. No focal osseous lesion is seen Impression: 1. No sign of abdominal aortic aneurysm or dissection 2. Bilateral renal artery stenosis 3. No sign of mesenteric artery stenosis 4. Mild stenoses of the right [employer], proximal right SFA, and bilateral internal iliac arteries 5. Indeterminate left adrenal enlargement. A follow-up dedicated adrenal protocol CT or MRI could be obtained 6. Left renal cysts 7. Apparent small mass in the right hepatic lobe. This could represent a benign hemangioma but is indeterminate in nature. This could also be further evaluated by the above recommended follow-up CT or MRI ACT 112: Positive. There are findings on this exam that require communication between the performing entity and the patient following Patient Test Result Information Act ([place] ACT 112) guidelines. Electronically signed by Oseas Sanchez 04-19-2025 6:19 PM Dictated: 04/19/25 1644 Transcribed: ECG Data Attestation: I personally reviewed and interpreted this ECG as follows: Additional Comments: EKG #1 at 1537: Sinus rhythm with a rate of 94. VT QRS and QTc intervals are within normal limits. Mild ST depression in leads II, III, aVF, V3 V4. EKG #2 at 1630: Sinus rhythm with rate of 92. VT QRS and QTc intervals within normal limits. Mild ST depression in leads II, III, aVF, V3 V4. No significant change from the EKG done in triage 1 hour ago. EKG #3 at 1632 (posterior EKG): Sinus rhythm with a rate of 90. VT 208 QRS [address] elevation or ST depression. [facility] Narrative 1614: The patient was evaluated in room C1. A complete history and physical exam was performed Cardiac monitoring: An order was placed for continuous cardiac monitoring. The monitor shows a rate of 90 with sinus rhythm interpreted by me Patient was seen during a time of extreme volume and extreme acuity. Nursing triage protocols were initiated labs and imaging was conducted by protocol in the triage area. Patient's high-sensitivity troponin was elevated. EKG showed some mild ST depression in lead II, III and aVF as well as V3 and V4. Will repeat EKGs and conduct posterior EKG. 1635: Repeat EKGs showed no significant changes. Continued ST depressions in leads II, III, aVF, V3 and V4. Posterior EKG unremarkable. Will obtain CTA chest to rule out dissection. 1840: Vital signs stable. Patient reports that the nitroglycerin sublingually did help her chest pain but it started come back. Patient given additional sublingual nitroglycerin and started on Nitropaste. CTA of the chest abdomen pelvis negative for dissection. Patient alert and oriented x 3 no focal neurologic deficits. Patient be started on heparin bolus and drip and be admitted for NSTEMI. Impression & Plan NSTEMI (non-ST elevated myocardial infarction) Critical Care Time Critical Care Time: Yes Total Critical Care Time: 52 I have personally spent greater than 52 minutes of critical care time in the direct management of this patient. This includes bedside care, interpretation of diagnostic studies, and testing, discussion with consultants, patient, and family members, and other required patient management activities. This 52 minutes is in excess of all separately billable procedures. Discharge Plan Visit Data Chief Complaint: Abdominal Pain Stated Complaint: ABD PAIN, SHOOTING TO ARMS ED Provider: Edouard Lunsford Discharge Problem: NSTEMI (non-ST elevated myocardial infarction) Patient Disposition: Admitted As Inpatient Condition: Serious Discharge Instructions Interventions: ED Discharge Assessment Last Done: 04/19/25 20:59 Forms Stand Alone Forms: My [employer] Prescriptions Prescriptions: No Action No Known Home Medications Referrals Referrals: Cesar Araiza PA-C [Primary Care Provider] -
[2025-04-19] MEDS: MoRPHine SULFATE 2 MG/ML CARP IV STA (23:19)
[2025-04-20] MEDS: MoRPHine SULFATE 2 MG/ML CARP IV STA (00:32)
[2025-04-20] MEDS ORDERED: MoRPHine SULFATE 2 MG/ML CARP IV PRN (01:21)
[2025-04-20] MEDS ORDERED: ACETAMINOPHEN 325 MG TAB PO PRN (01:21)
[2025-04-20] MEDS ORDERED: ONDANSETRON INJ 2 MG/ML 2 ML VIAL IV PRN (01:21)
[2025-04-20] MEDS ORDERED: MELATONIN 3 MG TAB PO PRN (01:21)
[2025-04-20 02:35] LABS: ANTI-Xa, UFH(UnfractionatedHep 0.12 IU/ml (0.3-0.7)
[2025-04-20] MEDS: HEPARIN SOD (PORCINE) 1000 UNIT/ML IV ONE (02:59)
[2025-04-20 05:12] LABS: Cholesterol 209.0 mg/dl (0-200); HDL Cholesterol 39.0 mg/dl; Triglycerides 106.0 mg/dl (0-150)
[2025-04-20 07:18] LABS: Hemoglobin A1C 5.5 % (4.5-5.6)
[2025-04-20] MEDS: ASPIRIN 81 MG ECTAB PO SCH (09:42)
[2025-04-20] MEDS: TICAGRELOR 90 MG TAB PO ONE (09:44)
[2025-04-20] MEDS: NITROGLYCERIN 2% OINTMENT 30GM TUBE EXT SCH (09:48)
--- NOTE | 2025-04-20 10:06 | Electrocardiogram Report ---
Test Reason : Blood Pressure : */* mmHG Vent. Rate : 94 BPM Atrial Rate : 94 BPM P-R Int : 136 ms QRS Dur : 84 ms QT Int : 354 ms P-R-T Axes : 35 62 51 degrees QTcB Int : 442 ms Normal sinus rhythm Possible Left atrial enlargement Nonspecific ST abnormality Abnormal ECG No previous ECGs available Confirmed by Moose Winn ([id number]) on 04/20/2025 10:05:55 AM Referred By: Confirmed By: Moose Winn
[2025-04-20] MEDS: ATORVASTATIN 40 MG TAB PO SCH (10:24)
--- NOTE | 2025-04-20 10:25 | Pre Anesthesia Assessment ---
Date of Service April 20, 2025 Pre Sedation Assessment Vital Signs Temp Pulse Pulse Resp BP BP Pulse Ox 04/20/25 07:25 77 04/20/25 07:11 37.1 C 77 19 119/71 91 04/20/25 03:22 36.8 C 76 16 128/77 93 04/20/25 03:05 72 04/20/25 01:21 36.6 C 65 16 162/89 H 97 04/20/25 00:55 74 18 133/80 95 04/20/25 00:30 70 18 144/96 H 95 04/19/25 23:53 75 18 143/91 H 95 04/19/25 23:21 81 160/89 H 04/19/25 23:15 78 154/90 H 04/19/25 22:38 83 19 168/103 H 95 04/19/25 22:08 79 161/94 H 04/19/25 21:00 74 19 154/88 H 04/19/25 20:36 70 04/19/25 20:20 97 H 151/92 H 04/19/25 20:00 83 15 151/92 H 96 04/19/25 19:00 81 19 156/90 H 98 04/19/25 18:00 85 19 156/91 H 97 04/19/25 17:00 91 H 21 146/84 H 95 04/19/25 16:43 91 H 16 100 04/19/25 16:30 92 H 22 04/19/25 16:23 91 H 04/19/25 16:18 93 H 16 146/91 H 100 04/19/25 14:35 37.0 C 101 H 17 140/80 98 O2 Del Method 04/20/25 07:25 04/20/25 07:11 Room Air 04/20/25 03:22 Room Air 04/20/25 03:05 04/20/25 01:21 Room Air 04/20/25 00:55 Room Air 04/20/25 00:30 Room Air 04/19/25 23:53 Room Air 04/19/25 23:21 04/19/25 23:15 04/19/25 22:38 Room Air 04/19/25 22:08 04/19/25 21:00 Room Air 04/19/25 20:36 04/19/25 20:20 04/19/25 20:00 Room Air 04/19/25 19:00 Room Air 04/19/25 18:00 04/19/25 17:00 04/19/25 16:43 Room Air 04/19/25 16:30 04/19/25 16:23 04/19/25 16:18 Room Air 04/19/25 14:35 Room Air Cardiovascular RRR, no murmur, no edema Respiratory normal respiratory effort, lungs clear to auscultation Pre-Sedation Airway Assessment Smoking Status: Current every day smoker Oral Cavity: + Dental Abnormalities (Missing teeth) Mallampati Class: III ASA 4 Notes The planned sedation has been discussed with the patient. Informed Consent was obtained. I have identified the patient, determined the appropriateness of sedation and have assessed the patient immediately prior to the procedure. All medicine(s) and interventions are by my order. [facility] [place] Codes (Charges) Indication for Procedure Indication for procedure: Non-ST elevation PR
[2025-04-20] MEDS: niCARdipine 2,000 MCG/20 ML SYR ONE (11:12)
[2025-04-20] MEDS: NITROGLYCERIN/D5W 100MCG/ML 20ML SYR ONE (11:12)
--- NOTE | 2025-04-20 11:21 | Cardiology Consultation ---
Date of Consultation April 20, 2025 Assessment & Plan (1) NSTEMI (non-ST elevated myocardial infarction): Plan 59-year-old female who presented to the ER with several episodes of chest pain with nonspecific ST changes and elevated troponin. NSTEMI -Will likely plan for cardiac catheterization with or without PCI at some point today. -Please keep the patient NPO and on heparin gtt at this time. -Patient may have aspirin. Loading dose of Brilinta ordered. -Continue to trend troponin. EKGs as needed for chest pain -medication regimen will be determined after cardiac cath HLD - Elevated total cholesterol and LDL - She will be need to be started on statin therapy in the future History of Present Illness Reason for Consultation: Chest pain Attending Physician: Jeff Obrien MD History of Present Illness Graciela is a 59-year-old female with a past medical history of tobacco abuse who was admitted to this facility for complaints of chest pain. Graciela states that on Wednesday she began to develop, " on and off," substernal chest discomfort. The discomfort occurred during rest and while doing basic activity. She initially describes it as a, "sharp, full," feeling. The initial event lasted approximately 1 hour in duration. She initially thought it was indigestion and took Mylanta. The pain did eventually begin to subside. On Wednesday, the chest discomfort returned, but in this case she began to develop discomfort to the back of her neck and in between her shoulder blades. This episode again lasted approximately 1 hour. She took Mylanta again in this case though it did not relieve her symptoms. The discomfort went away on its own. Wednesday, she had another episode similar to this however, the discomfort was much worse. Rates it a 10 out of 10 on the pain scale. She describes the worsening pain as a, "pressure". The discomfort radiated to the back of her neck and in between her shoulder blade. She then developed numbness and tingling down both arms with her right being worse than her left. During this episode, she developed some nausea and had a small episode of emesis. She states the pain did get better at time but did not fully go away which prompted her to come to the ER. In the ER, her initial EKG shows normal sinus rhythm with a rate of 94. There is possible left atrial enlargement. Subtle ST depression present in II, III, avf, more so within V3. An additional EKG was obtained several hours after the initial one which did not show any significant changes. CTA of the chest was negative for acute concern. Her initial troponin was nearly 2200, her most recent troponin level is 7977 which is her highest thus far. Heparin drip was initiated in the ER. Beta tj, sublingual NTG, topical NTG and IV morphine were provided.. An echocardiogram was completed, results are pending at this time. She is not having an current chest pain, there is nitro paste in place. Graciela tells me that over the last several months she has noted some shortness of breath with day-to-day activities though this is not always constant. She f elt like this was due to to to the fact that she smokes 1 pack of cigarettes a day. She has not had had any episodes of dizziness, near-syncope or syncope. She denies any palpitations she has not had any other episodes of chest discomfort. She has no shortness of breath at rest. She has not noticed any swelling to her lower extremities or has had any recent weight gain. Asides from smoking, she reports that she drinks approximately 10 standard beers a week and occasionally smokes marijuana. She denies any other substance use. To her knowledge, there is no history of CAD in her family and both of her biological parents are still alive. 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 Allergies Allergy/AdvReac Type Severity Reaction Status Date / Time No Known Allergies Allergy Unverified 04/19/25 17:07 Home Medications Medication Instructions Recorded Confirmed Type No Known Home Medications 04/19/25 04/19/25 History Patient History Social History Smoking Status: Current every day smoker Tobacco Type: Cigarettes Cigarettes Per Day: 1 pk; Second Hand Exposure: Yes; Do You Dip or Chew Tobacco: No; Tobacco Cessation Education Requested by Patient: No Hx Alcohol Use: No Hx Substance Use: No Preferred Language: Egyptian Communication Ability: Effective Fruit Inspector Required: No Beliefs That Will Affect Care: None Current Living Situation: Significant Other Other Information That Helps Us Care for You: No Feels Safe at Home: Yes Safety Concerns: Feels Safe At This Time Assistive Devices: Contacts and Glasses Review of Systems Review of Systems: her hpi Physical Exam 2 Physical Exam: Physical Exam: AOx3. Mood affect appear normal. All questions appropriately. HEENT: Sclerae are anicteric. Pupils are equal and reactive to light and accommodation. Extraocular movements were intact. Neuro: Cranial nerves intact Lungs: Lungs are clear to auscultation bilaterally. There are no rales wheezes or rhonchi. Normal respiratory effort without use of accessory muscles. Cardiac: The rhythm was regular. S1 and S2 were normal. There are no murmurs on examination. The PMI was not markedly displaced on palpation. Extremities: Patient has bilateral radial pulses that are equal in intensity. There is no evidence cyanosis or clubbing. There was no evidence of significant peripheral edema bilaterally. Skin: There are no rashes noted on examination today. Results & Data Vital Signs (Past 12 Hours) Vital Signs Temp Pulse Pulse Resp BP BP Pulse Ox 04/20/25 07:25 77 04/20/25 07:11 37.1 C 77 19 119/71 91 04/20/25 03:22 36.8 C 76 16 128/77 93 04/20/25 03:05 72 04/20/25 01:21 36.6 C 65 16 162/89 H 97 04/20/25 00:55 74 18 133/80 95 04/20/25 00:30 70 18 144/96 H 95 04/19/25 23:53 75 18 143/91 H 95 04/19/25 23:21 81 160/89 H 04/19/25 23:15 78 154/90 H O2 Del Method 04/20/25 07:25 04/20/25 07:11 Room Air 04/20/25 03:22 Room Air 04/20/25 03:05 04/20/25 01:21 Room Air 04/20/25 00:55 Room Air 04/20/25 00:30 Room Air 04/19/25 23:53 Room Air 04/19/25 23:21 04/19/25 23:15 PG Care Time/CCT Total # of Minutes Spent Total Time Spent with Patient: Total time spent is greater than 50% in coordination of care (as documented) at patient's floor/unit and/or counseling patient: [place] [address] IN/OBS CONSULT LVL 5,80M Patient Type New Diagnoses NSTEMI (non-ST elevated myocardial infarction) I21.4
[2025-04-20 11:36] LABS: ANTI-Xa, UFH(UnfractionatedHep 0.14 IU/ml (0.3-0.7)
--- NOTE | 2025-04-20 12:03 | Hospitalist Progress Note ---
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 Evaluation is nonsignificant for clear infection or gross electrolyte abnormalities. Liver enzymes slightly elevated AST 47 alkaline phosphatase 107. Troponin elevated 2195.7 then on repeat 2605.5 with EKG changes. Imaging without acute findings, but CTA of abdomen and pelvis does reveal bilateral renal artery stenosis as well as L adrenal enlargement, L renal cyst, and R hepatic lobe mass. Admission for NSTEMI. 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 No prior history of cardiac conditions, does have long history of cigarette use, ~ 45 years at ~ 1ppd but trying to decrease. No home medications. Pt without anginal symptoms at baseline. Initially difficult to obtain pain control despite IV beta blockers, oral beta blockers, NTG, topical NTG, and morphine IV. Finally with improvement, so pt to continue to PCU. Critical care time includes 42 minutes duration. Admission for NSTEMI. - CBC unremarkable; CMP normal electrolytes; Mg 2.2 - Troponin most recent 77375.2, still hasn't peaked - EKG NSR, possible LAE with nonspecific ST abnormalities (leads V3 and V4) at 94 bpm - CXR no active disease - CTA A/P no dissection or aneurysm, with bilateral renal artery stenosis, no mesenteric artery stenosis, mild stenosis of lower SHIPPER/RECEIVER/proximal R SFA, bilateral internal iliacs - Chest CTA without PE, aneurysm, or dissection - Echo completed, read is pending - Lipids panel pending -- initiated Atorvastatin 40mg - NTG SL + morphine IV prn pain - Metoprolol tartrate 25 mg po BID initiated - Continue ASA daily - Encouraged smoking cessation- she has requested a nicotine patch, will order 21mg/day TD patch - Cardiology consulted - appreciate input + recs - Nitropaste 1in q6 - Continue Heparin gtt per protocol #Elevated LFTs/Hepatic mass As identified on imaging/labs. No prior history liver disease. Does drink alcohol occasionally throughout the week. - AST 47, ALT 18, alk phos 107 - trend LFTs - CTA A/P small mass R hepatic lobe - ? benign hemangioma - Recommended follow up CT or MRI -- not ordered at time of admission Dispo: Admit, PCU VTE Prophylaxis: Heparin - treatment dose Plan as outlined above. For [facility] today. Await recs following cath. Admission and Anticipated Discharge Date Admission Date: April 19, 2025 Supervising Physician Co-Signing Physician Notes I personally saw and examined the patient. I independently reviewed the labs, EKG, imaging, problem list, medication list, past medical history and family history. I verified all lopez points and agree with Demetria Dietz PA-C with the following exceptions and/or additions: NSTEMI - ongoing lingering / when seen this morning. Nitro paste reordered. Cardiology contacted and informed that planned cardiac cath later today. Sabra Owens is a 59 yo F hospitalized with NSTEMI who was seen today on daily rounds. She is currently in bed, reports that her pain has substantially improved. She did have sharp chest pain that radiated into her arm and neck with associated paresthesias and nausea. She denies vomiting. She has never had anything like this previously. She is a heavy tobacco smoker. Her trop thus far has not peaked, most recent 14,482.2. Cardiology has evaluated this AM, she is NPO in preparation for [facility]. Review of Systems 2 Review of Systems: All systems reviewed and are unremarkable except as noted in HPI and below. Denies fever, chills, fatigue, headache, nasal congestion, sore throat, cough, palpitations, orthopnea, PND, abdominal pain, n/v/d, constipation, dysuria, hematuria, frequency, back pain, joint pain or swelling, easy bruising or bleeding, skin lesions or rashes. Physical Exam 2 Physical Exam: GENERAL: 59 yo well-nourished middle aged WF. NAD. LUNGS: Clear to auscultation bilaterally. No W/R/R. CARDIOVASCULAR: Regular rate and rhythm. ABDOMEN: Soft, non-tender and non-distended. BS normoactive x 4 quad. EXTREMITIES: No edema. Non-tender. Peripheral pulses +2/4. NEUROLOGIC: A&O x3. No focal neurological deficits. CN II-XII grossly intact. PSYCHIATRIC: Cooperative. Appropriate mood and affect. SKIN: Warm, dry, intact. No rashes or lesions. Results & Data Results & Data Vital Signs (Past 12 Hours) Vital Signs Temp Pulse Pulse Resp BP Pulse Ox O2 Del Method 04/20/25 10:56 83 16 131/78 98 Room Air 04/20/25 07:25 77 04/20/25 07:11 37.1 C 77 19 119/71 91 Room Air 04/20/25 03:22 36.8 C 76 16 128/77 93 Room Air 04/20/25 03:05 72 04/20/25 01:21 36.6 C 65 16 162/89 H 97 Room Air 04/20/25 00:55 74 18 133/80 95 Room Air 04/20/25 00:30 70 18 144/96 H 95 Room Air 04/19/25 23:53 75 18 143/91 H 95 Room Air Laboratory Results 04/19/25 Unknown 04/19/25 Unknown PG Care Time/CCT Total # of Minutes Spent Total Time Spent with Patient: Total time spent is greater than 50% in coordination of care (as documented) at patient's floor/unit and/or counseling patient: 51 minutes Coding Level of Care Code 61463 SUB INP/OBS CARE 3/50MIN Diagnoses NSTEMI (non-ST elevated myocardial infarction) I21.4 Elevated LFTs R79.89
[2025-04-20] MEDS: MIDAZOLAM HCL 1 MG/ML 2ML VIAL ONE (12:06)
[2025-04-20] MEDS: OPTIRAY 350 ONE (12:06)
[2025-04-20] MEDS: HEPARIN (PORCINE) 1000 UNIT/ML 10 ML (CATH LAB USE ONLY) ONE (12:09)
--- NOTE | 2025-04-20 12:11 | Post Anesthesia Assessment ---
Date of Service April 20, 2025 Post Sedation Assessment Vital Signs Temp Pulse Pulse Resp BP BP Pulse Ox 04/20/25 10:56 83 16 131/78 98 04/20/25 07:25 77 04/20/25 07:11 37.1 C 77 19 119/71 91 04/20/25 03:22 36.8 C 76 16 128/77 93 04/20/25 03:05 72 04/20/25 01:21 36.6 C 65 16 162/89 H 97 04/20/25 00:55 74 18 133/80 95 04/20/25 00:30 70 18 144/96 H 95 04/19/25 23:53 75 18 143/91 H 95 04/19/25 23:21 81 160/89 H 04/19/25 23:15 78 154/90 H 04/19/25 22:38 83 19 168/103 H 95 04/19/25 22:08 79 161/94 H 04/19/25 21:00 74 19 154/88 H 04/19/25 20:36 70 04/19/25 20:20 97 H 151/92 H 04/19/25 20:00 83 15 151/92 H 96 04/19/25 19:00 81 19 156/90 H 98 04/19/25 18:00 85 19 156/91 H 97 04/19/25 17:00 91 H 21 146/84 H 95 04/19/25 16:43 91 H 16 100 04/19/25 16:30 92 H 22 04/19/25 16:23 91 H 04/19/25 16:18 93 H 16 146/91 H 100 04/19/25 14:35 37.0 C 101 H 17 140/80 98 O2 Del Method 04/20/25 10:56 Room Air 04/20/25 07:25 04/20/25 07:11 Room Air 04/20/25 03:22 Room Air 04/20/25 03:05 04/20/25 01:21 Room Air 04/20/25 00:55 Room Air 04/20/25 00:30 Room Air 04/19/25 23:53 Room Air 04/19/25 23:21 04/19/25 23:15 04/19/25 22:38 Room Air 04/19/25 22:08 11/13/25 21:00 Room Air 04/19/25 20:36 04/19/25 20:20 04/19/25 20:00 Room Air 04/19/25 19:00 Room Air 04/19/25 18:00 04/19/25 17:00 04/19/25 16:43 Room Air 04/19/25 16:30 04/19/25 16:23 04/19/25 16:18 Room Air 04/19/25 14:35 Room Air Recovery Score Activity: Moves 4 extremities Respiration: Deep Breath/Cough Circulation: +/-20% PreAnes Value Consciousness: Fully Awake Oxygen Saturation: > 92% On Room Air Discharge Sedation Level of Care: Fast Track Phase II Post Sedation Plan On clinical assessment, the patient appears to have tolerated the sedation without complications. Patient is recovering as anticipated. Patient will continue to be monitored by nursing and may be discharged when sedation discharge criteria are met per below protocol. Upon Completions of procedure up to 15 minutes continue every 5 minute vital signs and the P.A.R. score; then discharge to a Phase I or Fast Track to Phase II per the following guidelines: * Discharge Patient to appropriate Phase II area if PAR is 8 or greater or return to pre- procedure baseline. The post - procedure orders will be as directed. * If PAR score is less than 8 or not return to pre-procedure baseline then patient will follow Phase I monitoring till PAR is reached for Phase II. The Phase I may be done in procedure room or may call to secure a Phase I area. * If naloxone or flumazenil are used for reversal, hold in Phase I for continued monitoring from when last reversal dose was given for a minimum of 60 minutes or longer pending the nurse and/or physician discretion of patient condition before discharge to Phase II. Please call the Sedation Physician to re-evaluate and complete post-note for discharge to Phase II area. Do NOT discharge from procedure sedation or Phase 1 until post- sedation evaluation note is complete by procedure /sedation MD Sedation Discharge Instructions to be given to the patient at discharge to home. [facility] Procedure Codes (Charges) Indication for Procedure Indication for procedure: NSTEMI
[2025-04-20] MEDS: NICOTINE 21 MG/24 HR TDSY TD SCH (13:38)
--- NOTE | 2025-04-20 14:28 | XCELERA ---
[id number]
--- NOTE | 2025-04-20 16:48 | Cardiac Catheterization ---
[facility] Data: Community Living Coach Cardiac Status Clinical evaluation leading to the procedure CAD Presenation: Non STEMI Anginal Classification: CCS IV Heart Failure: No Cardiogenic Shock within 24 Hours: No Cardiac Arrest within 24 Hours: No Imaging Studies Past 6 Months: Yes Stress Studies Past 6 Months: No Coronary Anatomy Dominant: Right Left Main (% Stenosis): Distal (30-40%) LAD (% Stenosis): Normal D1 (% Stenosis): Proximal (50%) Circumflex (% Stenosis): Mid (50% long) and Distal (50-70%) OM1 (% Stenosis): Proximal (99%) RCA (% Stenosis): Proximal (50-60%) R PDA (% Stenosis): Normal R PL1 (% Stenosis): Normal Diagnostic Physicians Name: Medhat Heath MD, PhD Closure Device Percutaneous Entry Location: Radial Closure Device: Radial Band Recommendations: Medical Therapy and/or Counseling and PCI without planned CABG PCI Indication: PCI for high risk Non-ARYAN Lesion Segment Name: Proximal OM1 Culprit Artery: Yes Stenosis Prior to Rx (%): 99% Chronic Total Occlusion: No Pre-Procedure ROSELYN Flow: 2 Previously Treated Lesion: No Lesion Complexity: Non-High/Non-C Lesion Length (mm): 8 Thrombus Present: No Bifurcation Lesion: No Guidewire Across Lesion: Yes Intraprocedure Events Significant Disection: No Perforation: No Cardiac Cath Procedure Full Procedure Date April 20, 2025 Pre-Procedure Diagnosis Pre-Procedure Diagnosis: Non STEMI AUC Score AUC Score: 08 Post-Procedure Diagnosis Post-Procedure Diagnosis: Severe CAD and Successful PCI Procedure(s) Performed Procedure(s) Performed: Coronary Angiography and Drug Eluting Stent Airplane Electrical Repairer Medhat Heath MD, PhD Estimated Blood Loss Estimated Blood Loss: 10 cc Medication(s) Medication(s): Fentanyl, Heparin, Lidocaine 1%, Nicardipine, Nitroglycerin and Versed Summary of Findings Brief description: Patient was brought to the cardiac catheterization suite where she was shaved and prepped in sterile fashion. Sedated using IV Versed and fentanyl. Soft tissue of the right wrist were anesthetized using 2 mL of 1% Xylocaine. Right radial artery was accessed with modified Seldinger technique and a 6 Lao radial artery glide sheath was placed. Patient was provided anticoagulation with IV heparin and antispasmodics including nicardipine and nitroglycerin. All catheters were advanced and exchanged over a 0.035 J-tip wire. Left coronary angiography in orthogonal views with a 5 Lao Bowdon 4 diagnostic catheter. Right coronary angiography in orthogonal views with a 5 Lao Bowdon 4 diagnostic catheter. Diagnostic catheters were removed. Decision was made to proceed with PCI of the circumflex. ACT was checked and additional heparin provided as needed throughout the case to maintain therapeutic anticoagulation. 6 Lao EBU 3.0 guide catheter was used to engage the left main. A Andres blue coronary guidewire was advanced through the guide catheter and positioned distally in the circumflex. Lesion predilated with a 2.0 x 8 mm trek balloon at 14 fabby. Attempted to pass a 2.5 x 12 mm Sanjay drug-eluting stent across the lesion unsuccessfully. A guide liner catheter was advanced over the guidewire. Predilatation with a 2.5 x 8 mm trek balloon at 6 fabby followed by 8 fabby. 2.25 x 12 mm Sanjay DANYEL reinserted and successfully positioned across the lesion. Deployed initially at 18 fabby with final inflation up to 21 fabby. Stent delivery system was removed. 2.5 x 8 mm NC Helder balloon was advanced and positioned within the proximal to mid stent. The stent was postdilated to 17 fabby. Balloon was removed. Angiography performed with the guidewire in place. Guide wire and guide liner were removed and final angiographic evaluation performed. Guide catheter was then removed. Radial artery sheath was removed. Hemostasis was obtained using a TR band. Patient was hemodynamically stable and asymptomatic. She was returned to the recovery area. This ended the case. Coronary angiography findings: TMD-oesxz-exjmpwz vessel which is mildly calcified and has distal 30 to 40% stenosis. KNC-dpjye-mvqgzym and transapical. Gives a large branching first diagonal. Proximal LAD without disease. Mid LAD with mild luminal irregularities. Distally there is no significant disease. Diagonal with diffuse mild disease of less than 50% stenosis. LCx-large caliber and probably nondominant. Travels in AV groove where gives a large branching OM1. The OM1 proximal segment has 99% stenosis and there are at least 3 significant branches beyond the lesion. This is the culprit for the non-ST elevation ID. There is ROSELYN II flow. The mid AV groove circumflex provides an atrial branch and then has a 50% stenosis. Distally there is a 50- 70% stenosis. RCA-medium to large caliber and probably dominant. Proximally there is diffuse mild calcific disease with up to 50-60% stenosis. The vessel bifurcates early providing medium caliber branching PDA and posterolateral. These vessels have mild luminal irregularities. PCI LCx-0% residual stenosis post PCI No evidence of dissection or perforation post PCI ROSELYN-3 flow post PCI Summary: 1. Multivessel coronary disease with severe disease in the OM 1 branch of the circumflex. This is the culprit for non-ST elevation ID. 2. Successful PCI with implantation of a drug-eluting stent in the OM branch. 3. Guideline directed medical therapy for secondary prevention of coronary disease to include low-dose aspirin, high intensity statin therapy, beta- tj, plus or minus JOSHUA inhibitor/ARB as tolerated. 4. Dual antiplatelet therapy with aspirin 81 mg daily and Brilinta 90 mg p.o. twice daily for up to 1-2 years. Hemodynamics Rest Ao:: 116/65 mmHg Final Ao: 146/73 mmHg LV: Not performed Recommendations Recommendations: Medical Therapy and/or Counseling and PCI without planned CABG Radiation Exposure (mGy) 1511 mGy, fluoroscopy time 12.6 minutes Contrast (mls) 190 Anesthesia 1 mg Versed, 25 mcg fentanyl IV. Start 1121, and 1205 Procedural Complication(s) None Disposition Community Living Coach Holding/Recovery I attest to the content of the Intraoperative Record and any orders documented therein. Any exceptions are noted below. [facility] Card Cath Procedure Codes Cardiac Catheterization Procedure 1: Cardiovascular Cath Procedures: 70790 Coronaries Moderate Sedation Procedure 1: Sedation/Anesthesia: 59937 Mod Sedation by the same physician;Init15 Min Child Age 5 & Up (Initial 15 minutes, start time 1121) Procedure 2: Sedation/Anesthesia: 18966 Mod Sedation by the same physician; Ea [id number] Minutes (Additional 29 minutes, end time 1205) Stenting Procedure 1: Cardiovascular Stent Procedures: 70596 Perc transluminal revascularization of acute sub/total occl, aMI (LCx-OM) PG Care Time/CCT Total # of Minutes Spent Total Time Spent with Patient: Total time spent is greater than 50% in coordination of care (as documented) at patient's floor/unit and/or counseling patient:
--- NOTE | 2025-04-20 20:05 | Electrocardiogram Report ---
Test Reason : Blood Pressure : */* mmHG Vent. Rate : 92 BPM Atrial Rate : 92 BPM P-R Int : 150 ms QRS Dur : 86 ms QT Int : 360 ms P-R-T Axes : 43 61 65 degrees QTcB Int : 445 ms Normal sinus rhythm Nonspecific ST abnormality Abnormal ECG When compared with ECG of 19-Apr-2025 15:37, (unconfirmed) No significant change was found Confirmed by Moose Winn ([id number]) on 04/20/2025 8:05:15 PM Referred By: REFERRED SELF Confirmed By: Moose Winn
--- NOTE | 2025-04-20 20:06 | Electrocardiogram Report ---
Test Reason : Blood Pressure : */* mmHG Vent. Rate : 90 BPM Atrial Rate : 90 BPM P-R Int : 208 ms QRS Dur : 92 ms QT Int : 330 ms P-R-T Axes : 48 60 63 degrees QTcB Int : 403 ms Normal sinus rhythm Possible Anterolateral infarct , age undetermined Abnormal ECG When compared with ECG of 19-Apr-2025 16:30, (unconfirmed) Borderline criteria for Anterolateral infarct are now Present T wave inversion now evident in Lateral leads Confirmed by Moose Winn ([id number]) on 04/20/2025 8:05:51 PM Referred By: REFERRED SELF Confirmed By: Moose Winn
--- NOTE | 2025-04-20 20:24 | Electrocardiogram Report ---
Test Reason : Blood Pressure : */* mmHG Vent. Rate : 78 BPM Atrial Rate : 78 BPM P-R Int : 138 ms QRS Dur : 92 ms QT Int : 380 ms P-R-T Axes : 38 45 78 degrees QTcB Int : 433 ms Normal sinus rhythm Nonspecific ST and T wave abnormality Abnormal ECG When compared with ECG of 19-Apr-2025 16:32, (unconfirmed) Borderline criteria for Anterior infarct are no longer Present Borderline criteria for Anterolateral infarct are no longer Present Confirmed by Moose Winn ([id number]) on 04/20/2025 8:23:47 PM Referred By: REFERRED SELF Confirmed By: Moose Winn
[2025-04-20] MEDS: METOPROLOL TARTRATE 25 MG TAB PO SCH (21:02)
[2025-04-20] MEDS: TICAGRELOR 90 MG TAB PO SCH (22:21)
[2025-04-21 06:37] LABS: Hematocrit (blood only) 38.8 % (37.0-47.0); Hemoglobin 13.6 g/dL (12.0-16.0); Immature Granulocytes # (auto) 0.01 K/uL (0.01-0.20); Immature Granulocytes % (auto) 0.2 %; Mean Corpuscular Hemoglobin 32.9 pg (25.0-34.0); Mean Corpuscular Volume 93.7 fL (80.0-100.0); Platelet Count 168 K/uL (130-400); RDW Standard Deviation 43.0 fL (36.4-46.3); Red Blood Count 4.14 M/uL (4.20-5.40); White Blood Count 5.96 K/ul (4.8-10.8)
[2025-04-21 07:17] LABS: Anion Gap 10.0 (3-11); Blood Urea Nitrogen 8.0 mg/dl (6-23); Calcium 9.6 mg/dl (8.6-10.3); Carbon Dioxide 23.0 mmol/L (21-32); Chloride 105.0 mmol/L (98-107); Creatinine Clr Calc Pharmacy 101.2 ml/min; Glucose 110.0 mg/dl (70-99(Fasting)); Potassium 3.6 mmol/L (3.5-5.1); Sodium 138.0 mmol/L (136-145)
[2025-04-21 07:26] LABS: INR 1.0 (0.9-1.1); Partial Thromboplastin Time 31 Seconds (21-31); Prothrombin Time 10.9 Seconds (9.0-12.0)
[2025-04-21] MEDS: REMOVE NICODERM PATCH SCH (08:30)
--- NOTE | 2025-04-21 09:29 | Cardiology Progress Note ---
Date of Service April 21, 2025 Assessment & Plan (1) NSTEMI (non-ST elevated myocardial infarction): Plan: Status post PCI of the circumflex. Mild to moderate residual coronary disease which will be treated as below. She will remain on dual antiplatelet therapy for 1-2 years. Strongly recommend she participate in cardiac rehab. Also needs to stop smoking, follow a cardiac prudent diet, and increase her cardiovascular exercise. Regarding her dual antiplatelet therapy, she should remain on aspirin plus the Brilinta. However, after 30 days the Brilinta can be changed to clopidogrel (300 mg p.o. loading dose followed 24 hours later by 75 mg daily) if she develops intolerance or it is too expensive. Strongly encouraged her to participate in cardiac rehab. (2) Coronary artery disease: Plan: Multivessel coronary disease with culprit lesion in the LCx-OM. Status post PCI. Guideline directed medical therapy for secondary prevention of coronary disease currently includes aspirin, atorvastatin, and metoprolol tartrate. Her blood pressure and heart rate are at target. No further titration at this time although we may make additional adjustments as an outpatient. Patient should follow-up in the cardiology office within 1 to 2 weeks of discharge. I will have the office give her a call on Wednesday. (3) Atherogenic dyslipidemia: Plan: She is high risk. High intensity statin therapy is recommended. Her untreated LDL was 149 mg/dL making her therapeutic target LDL 75 mg/dL. Would probably be a little more aggressive over the next year because of her residual disease and recent [place] in which case an LDL target closer to 50 mg/dL would be most appropriate. I will have her undergo repeat lipid panel after 3 months therapy and titrate as appropriate. Plan From a cardiovascular standpoint, she is stable. She may be discharged at this time. Office will call her regarding follow-up appointment. Admission and Anticipated Discharge Date Admission Date: April 19, 2025 Subjective 59-year-old female who presented on 04/19/2025 with complaint of chest pain. EKG without ischemic changes but her troponin was elevated. Subsequently underwent diagnostic coronary angiography revealing severe circumflex stenosis and an echocardiogram demonstrating wall motion abnormality in the same area. No other significant pathology on the echocardiogram. Single stent was placed in the circumflex without complication. She was started on dual antiplatelet therapy with aspirin 81 mg daily and ticagrelor 90 mg p.o. twice daily after loading dose of 180 mg. She has also been placed on atorvastatin. Overnight she did not have any events or symptoms. She is evidently tolerating her ticagrelor. Review of Systems Review of Systems: Negative except as per HPI Physical Exam Constitutional: WD/WN, vitals as above Neck: No JVD or bruits Respiratory: Clear to auscultation bilaterally. No wheezing, rhonchi, or rales. Diminished air movement. Cardiovascular: Regular rate and rhythm. S4 gallop. No rubs or murmurs appreciated. No edema. Radial access site is clean dry and intact. Mild ecchymosis right forearm. Neurologic: Cognition intact. Speech is fluent. No focal deficits. Psychiatric: A+Ox3, euthymic affect Results & Data Vital Signs (Past 12 Hours) Vital Signs Temp Pulse Pulse Resp BP Pulse Ox O2 Del Method 04/21/25 07:58 36.4 C L 78 16 115/73 95 Room Air 04/21/25 02:59 37.0 C 86 18 99/62 L 96 Room Air 04/20/25 23:17 37.0 C 87 18 95/60 L 96 Room Air 04/20/25 21:44 91 H PG Care Time/CCT Total # of Minutes Spent Total Time Spent with Patient: Total time spent is greater than 50% in coordination of care (as documented) at patient's floor/unit and/or counseling patient: Coding Level of Care Code 31683 SUB INP/OBS CARE 2/35MIN Diagnoses NSTEMI (non-ST elevated myocardial infarction) I21.4 Coronary artery disease I25.10 Atherogenic dyslipidemia E78.5
--- NOTE | 2025-04-21 16:12 | Hospitalist Progress Note ---
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 Evaluation is nonsignifica nt for clear infection or gross electrolyte abnormalities. Liver enzymes slightly elevated AST 47 alkaline phosphatase 107. Troponin elevated 2195.7 then on repeat 2605.5 with EKG changes. Imaging without acute findings, but CTA of abdomen and pelvis does reveal bilateral renal artery stenosis as well as L adrenal enlargement, L renal cyst, and R hepatic lobe mass. Admission for NSTEMI. #NSTEMI S/p cardiac cath 04/20 with stent placed to OM1 Continue ASA, Brillinta, metoprolol and atorvastatin Stop smoking - nicotine patch while in hospital, she requests this on discharge in addition Monitor overnight on telemetry due to NSVT on monitor today #Elevated LFTs/Hepatic mass As identified on imaging/labs. No prior history liver disease. Does drink alcohol occasionally throughout the week. - CTA A/P small mass R hepatic lobe - ? benign hemangioma + adrenal adenoma - Recommended follow up CT or MRI - can be performed as outpatient VTE Prophylaxis - low risk, encourage ambulation Disposition - continue on PCU due to NSVT, anticipated discharge tomorrow Admission and Anticipated Discharge Date Admission Date: April 19, 2025 Anticipated date of discharge: 04/22/25 Subjective No further chest pain since stent insertion. 7 beats NSVT on telemetry. Physical Exam Respiratory: normal respiratory effort, lungs clear to auscultation Cardiovascular: RRR, no murmur, no edema Gastrointestinal (Abdomen): normal bowel sounds, soft, nontender, no hepatosplenomegaly Results & Data Results & Data Vital Signs (Past 12 Hours) Vital Signs Temp Pulse Resp BP BP Pulse Ox O2 Del Method 04/21/25 15:52 36.6 C 73 16 102/68 99 Room Air 04/21/25 12:31 36.6 C 73 16 99/63 L 97 Room Air 04/21/25 07:58 36.4 C L 78 16 115/73 95 Room Air PG Care Time/CCT Total # of Minutes Spent Total Time Spent with Patient: Total time spent is greater than 50% in coordination of care (as documented) at patient's floor/unit and/or counseling patient: Coding Level of Care Code 49469 SUB INP/OBS CARE MIN Diagnoses NSTEMI (non-ST elevated myocardial infarction) I21.4 Elevated LFTs R79.89
[2025-04-22 07:13] VITALS: PULSE 84; RESP 17; TEMP 99; O2SAT 95
--- NOTE | 2025-04-22 08:20 | Discharge Summary ---
Discharge Summary Date of Service April 22, 2025 Principal Dx & Hospital Course #1 = Principal Diagnosis (1) NSTEMI (non-ST elevated myocardial infarction): (2) Elevated LFTs: Hoa Scott is a 59 year old female admitted to [facility] from April 19 - 2024 due to chest pain. She was diagnosed with a non ST elevation myocardial infarction (NSTEMI). This was treated with aspirin, Brilinta, metoprolol, atorvastatin, morphine and intravenous heparin. She underwent cardiac catheterization on April 20 showing multivessel coronary artery disease with severe disease in the OM1 branch of the circumflex artery. This was treated with a drug eluting stent to OM1 branch. She has remained chest pain free since stent performed and us now medically stable for discharge. One episode of non sustained ventricular tachycardia on April 21 has not recurred. 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 The pain lasted for ~ 30 minutes, then resolved without intervention. Later that same day, she went to bed and noticed that the pain started once more in the same nature, this time with radiation to her shoulder blades and with tingling in her bilateral arms. She took Mylanta at that time and felt that this resolved her pain, so she was able to sleep. Did not have additional symptoms at that time. 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 It again resolved on its own. Pt then had onset of R sided chest discomfort the morning of arrival, at 0130, lasting until ~ 0330. Notes that it was a dull pain that, at its worst, was "close to a 10/10" on the pain scale, and associated with lightheadedness when she was walking or moving around. It was in the same distribution as previously described. She has been more aware of her heartbeat, but no palpitations or SOB. She does have a chronic cough as she has smoked cigarettes for ~ 45 years, 1ppd, but currently trying to quit. At present, she feels that she still has some discomfort in her chest, rating it a 5/10 on the main scale and localized under her R breast. No abdominal pain, N/V/D/C. She has no prior history of gallbladder issues. No prior PMHx aside from seasonal allergies, does not take medications daily. Never had this happen before. No syncope or falls. ED evaluation with CBC without leukocytosis or leukopenia, H&H stable; PT/INR WNL; CMP glucose 101, AST 47, alkaline phosphatase 107; troponin 2195.7, 2605.5 on repeat; lipase 15; CXR no acute disease; CTA A/P no abdominal aortic aneurysm or dissection, bilateral renal artery stenosis, no sign of mesenteric artery stenosis, mild stenosis of R CATH LAB MANAGER/proximal R SFA/bilateral internal iliac arteries, left adrenal enlargement determinate, L renal cyst, small mass R hepatic lobe (indeterminate); chest CTA no aneurysm or dissection, no PE; EKG NSR, possible LAE at 94 bpm.; Provided with 1L NSS, nitroglycerin 0.4 mg sublingually, heparin drip initiated, and aspirin 324 mg p.o. in ED. Please see Dr. Omalley's attestation for adjustments/additions to treatment plan. Discharge Exam Respiratory normal respiratory effort, lungs clear to auscultation Cardiovascular RRR, no murmur, no edema Discharge Plan Discharge Items Patient Disposition: Home - Self-Care Reason For Visit: NSTEMI Discharge Diagnosis: Heart Attack (non ST elevation myocardial infarction) Condition on Discharge: Good Activity: Per Instructions section Non-emergency contact: Assistant Hall Director Call non-emergency contact if: you have any medication questions, your symptoms worsen, your pain is not controlled, you have a fever, your wound has increased drainage and your wound pain has increased Follow-up/Referrals: Medhat Heath MD, PhD [Physician] - 05/10/25 (Follow up NSTEMI) Cesar Araiza PA-C [Primary Care Provider] - () Diet: Heart Healthy Addtl Attending Provider Instructions: You were admitted to [facility] from April 19 - 2024 due to chest pain. You were diagnosed with a heart attack (non ST elevation myocardial infarction). This was treated with aspirin, Brilinta, metoprolol, atorvastatin and intravenous heparin. You underwent cardiac catheterization on April 20 showing multivessel coronary artery disease with severe disease in the OM1 branch of the circumflex artery. This was treated with a drug eluting stent to OM1 branch. You have remained chest pain free since stent performed and are now medically stable for discharge. Please follow up with cardiology with cardiac rehab on discharge. ACTIVITY RECOMMENDATIONS: It is common to feel weak and fatigue for a few days. * Do not drive or operate any motorized equipment for the next three days. * Limit stair usage (2 or 3 trips a day only) for the next three days. * Do not lift anything heavier than 10 pounds for the next three days. * Do not engage in vigorous exercise or any sports for the next five days. * You may shower the day after your procedure, but do not immerse the area for three days. Cleanse the site gently with soap and water. SPECIAL CARE INSTRUCTIONS: * You may replace the pressure dressing or band-aid the morning after the procedure. * After your procedure, it is normal to have a small bruise or small lump at the site. Examine your site daily for any change in the bruise or lump, redness, swelling, drainage or numbness. Notify your doctor if any change. BLEEDING: * If there is a small amount of bleeding at the site, lie down and apply firm pressure with a clean cloth for ten minutes. When the bleeding stops, lie quietly keeping the procedure limb straight for six hours. Notify your doctor as soon as possible. * If the bleeding does not stop after ten minutes or if there is a large amount of bleeding or spurting, call 911 immediately. Continue to lie down and hold firm pressure until help arrives. SKIN IRRITATION: * You may experience some redness and/or swelling in the area where radiation was administered. If any skin irritation occurs, please contact your family physician. FOLLOW UP VISIT: Keep any scheduled doctor appointments. Pending Studies at Discharge: No Stand-Alone Forms: My [facility] LoopIt, Smoking Cessation Medications and DC Order Prescriptions: New atorvastatin 40 mg Tablet 40 mg PO QPM Qty: 30 0RF aspirin 81 mg Tablet,Delayed Release (Dr/Ec) 81 mg PO QAM Qty: 30 0RF metoprolol tartrate 25 mg Tablet 25 mg PO BID Qty: 60 0RF nicotine 21 mg/24 hr patch 24 hour 1 patch transdermal DAILY Qty: 28 0RF No Action ticagrelor [Brilinta] 90 mg tablet 90 mg PO Q12H Qty: 180 3RF ticagrelor [Brilinta] 90 mg tablet 90 mg PO BID Qty: 180 3RF Discharge Orders: Discharge Order (Routine); Ordered 04/22/25 Ordered By: Jeff Garza/Other Patient Handouts: Ticagrelor Oral Tablet, Aspirin Oral Tablet, Atorvastatin Oral Tablet, Metoprolol Oral Tablet, Heart Attack Dc, Heart Attack Meds, Heart Attack: Back at Home Admission Data Admit Date/Time: 04/19/25 19:54 Attending Provider: Jeff Obrien Admit Provider: Alek Omalley Primary Care Provider: Cesar Araiza Other Providers: Medhat Heath Other Interventions: Discharge Summary Assessment (RN) Last Done: 04/22/25 08:24 Hospital Stay Data Consultations 04/19/25 18:41 ED Decision to Admit Stat 04/20/25 01:21 Consult Cardiology Routine 04/20/25 12:27 Consult Cardiac Rehabilitation Routine Procedures Performed Operation Date: 04/20/25 11:00 Actual Procedures p Cath, Coronaries ONLY (no LV) - Medhat Heath MD, PhD p Drug Eluting Stent SGl Vessel - Medhat Heath MD, PhD Diagnostic Imagining Performed 04/19/25 16:35 CT angio abdomen pelvis w con Stat IMPRESSION: No evidence of aortic aneurysm or dissection. No evidence of pulmonary embolism. CT angio chest dissec wo/w con Stat Impression: 1. No sign of abdominal aortic aneurysm or dissection 2. Bilateral renal artery stenosis 3. No sign of mesenteric artery stenosis 4. Mild stenoses of the right CATH LAB MANAGER, proximal right SFA, and bilateral internal iliac arteries 5. Indeterminate left adrenal enlargement. A follow-up dedicated adrenal protocol CT or MRI could be obtained 6. Left renal cysts 7. Apparent small mass in the right hepatic lobe. This could represent a benign hemangioma but is indeterminate in nature. This could also be further evaluated by the above recommended follow-up CT or MRI 11/14/25 09:55 CL Cath Imgs for PACS use only Routine Pending Results Patient Have Any Pending Studies at Discharge: No Discharge Instructions Given to Patient (Per Discharging Provider) You were admitted to [facility] from April 19 - 2024 due to chest pain. You were diagnosed with a heart attack (non ST elevation myocardial infarction). This was treated with aspirin, Brilinta, metoprolol, atorvastatin and intravenous heparin. You underwent cardiac catheterization on April 20 showing multivessel coronary artery disease with severe disease in the OM1 branch of the circumflex artery. This was treated with a drug eluting stent to OM1 branch. You have remained chest pain free since stent performed and are now medically stable for discharge. Please follow up with cardiology with cardiac rehab on discharge. ACTIVITY RECOMMENDATIONS: It is common to feel weak and fatigue for a few days. * Do not drive or operate any motorized equipment for the next three days. * Limit stair usage (2 or 3 trips a day only) for the next three days. * Do not lift anything heavier than 10 pounds for the next three days. * Do not engage in vigorous exercise or any sports for the next five days. * You may shower the day after your procedure, but do not immerse the area for three days. Cleanse the site gently with soap and water. SPECIAL CARE INSTRUCTIONS: * You may replace the pressure dressing or band-aid the morning after the procedure. * After your procedure, it is normal to have a small bruise or small lump at the site. Examine your site daily for any change in the bruise or lump, redness, swelling, drainage or numbness. Notify your doctor if any change. BLEEDING: * If there is a small amount of bleeding at the site, lie down and apply firm pressure with a clean cloth for ten minutes. When the bleeding stops, lie quietly keeping the procedure limb straight for six hours. Notify your doctor as soon as possible. * If the bleeding does not stop after ten minutes or if there is a large amount of bleeding or spurting, call 911 immediately. Continue to lie down and hold firm pressure until help arrives. SKIN IRRITATION: * You may experience some redness and/or swelling in the area where radiation was administered. If any skin irritation occurs, please contact your family physician. FOLLOW UP VISIT: Keep any scheduled doctor appointments. Total Time Total Time Spent Total Time Spent (In Minutes): 35 Total Time Includes: Examination of the Patient, Discharge Planning and Medication Reconciliation Coding Level of Care Code 66667 INP/OBS DISCH >30 MIN Diagnoses NSTEMI (non-ST elevated myocardial infarction) I21.4 Elevated LFTs R79.89
[2025-04-22 08:25] VITALS: BP 102/68
== END 2025-04-22 10:58 | disposition home or self-care (01) | DRG 322 ==
LOC: ED 14:21 → 4W 19:54 → SUATTDRO 19:54 → 4W 20:59
PROC: CLB.CCO (2025-04-20 11:00)
DX: I21.4 Non-ST elevation (NSTEMI) myocardial infarction; E78.5 Hyperlipidemia, unspecified; R16.0 Hepatomegaly, not elsewhere classified; Z79.02 Long term (current) use of antithrombotics/antiplatelets; I25.10 Atherosclerotic heart disease of native coronary artery without angina pectoris; Z79.82 Long term (current) use of aspirin; F17.210 Nicotine dependence, cigarettes, uncomplicated; I70.1 Atherosclerosis of renal artery